=== PATIENT | male | born 1940 | race Caucasian/White ===

== ENCOUNTER 2023-02-02 18:41 | Inpatient (IN) | payer MEDICARE, SELFPAY ==
[2023-02-02] VITALS (33 sets, daily range): BP systolic 83–138; BP diastolic 43–79; PULSE 77–102; RESP 14–25; TEMP 36.7–36.8; O2SAT 77–98; BMI 24.4; BMI 24.3
--- NOTE | 2023-02-02 18:49 | ED.SOB1 ---
Documented by User: Keenan Myers MD 02/02/23 18:58 HPI - SOB/Dyspnea General Chief Complaint: Shortness of Breath/Dyspnea Stated Complaint: RESPIRATORY Time Seen by Provider: 02/02/23 18:48 Mode of arrival: ambulance History of Present Illness HPI Narrative: the patient was brought by ambulance from [facility] for complaining of shortness of breath. The patient was quite dyspneic on arrival and was not able to provide much infformation. The paramedics indicated that he had on nasal cannula at the facility and his pulse oxes were in the mid to high 70s. The transitioned him to 10 L and then he transitioned him to a nonrebreather mask but his pulse ox was only in the low 80s and so they put a CPAP on him in route here. They gave him 125 mg Solu-Medrol. They told us that he is a DNR CC, however paperwork clearly states he is DNR CCA. Past medical problems and diagnosis were all noted on his transfer sheet. He is here alone at this time but does say that he is . He does have unspecified dementia, also has a history of alcoholic polyneuropathy hypoxemia hypertension past history of Covid timing is unspecified. No indication of chronic obstructive pulmonary disease on his transfer sheet. We immediately were able to obtain a portable chest x-ray that was consistent with chronic obstructive pulmonary disease but did not show a large hemopneumothorax, heart failure shift and the trachea or abnormal cardiac silhouette. We continued to give him supportive care including dual amount and put him on our BiPAP equipment. He is awake and alert and following commands but limited facility to answer questions Related Data Home Medications Medication Instructions Recorded Confirmed Bactrim DS 500 mg PO BID 02/02/23 02/03/23 PolyethleneGlycol-Propylene Gycol 0.3 % topical 02/02/23 Ophthammic acetaminophen 500 mg capsule 500 mg PO Q6H PRN fever or pain 02/02/23 02/03/23 apixaban 5 mg tablet 5 mg PO BID 02/02/23 02/03/23 carbidopa ER 25 mg-levodopa 100 mg 1 tab PO TID 02/02/23 02/03/23 tablet,extended release cyanocobalamin (vitamin B-12) 1,000 mcg PO DAILY 02/02/23 02/03/23 1,000 mcg capsule ferrous sulfate 325 mg (65 mg 325 mg PO BID 02/02/23 02/03/23 iron) tablet (Feosol) gabapentin 400 mg capsule 400 mg PO TID 02/02/23 02/03/23 lidocaine external patch 4% 4 % topical DAILY 02/02/23 02/03/23 midodrine 5 mg tablet 5 mg PO TID 02/02/23 02/03/23 pantoprazole 40 mg tablet,delayed 40 mg PO BID 02/02/23 02/03/23 release sertraline 100 mg tablet (Zoloft) 100 mg PO DAILY 02/02/23 02/03/23 sertraline 50 mg tablet 50 mg PO DAILY 02/02/23 02/03/23 erythromycin 5 mg/gram (0.5 %) eye ophthalmic (eye) 02/03/23 ointment Allergies Allergy/AdvReac Type Severity Reaction Status Date / Time amantadine Allergy Severe Verified 02/02/23 18:49 ketorolac Allergy Severe Verified 02/02/23 18:49 tramadol Allergy Severe Verified 02/02/23 18:49 Exam Narrative Exam Narrative: appears at least stated age. Respiratory rate twenty-four with the squad BiPAP. Saturations eighty-three but were trying to get a better reading on that. He is afebrile. Blood pressure is noted. Constitutional appears stated age. Follows commands denies any pain or discomfort just says he short of breath. ENT there is no craniofacial trauma or injury. Neck is soft and supple. Respiratory scattered rhonchi and wheezing bilaterally. Cardio EKG is pending but his heart rate is ninety-three do not hear obvious murmur. Abdomen nontender. Extremities do not have any pedal edema or venous cords. Constitutional Vital Signs - 24 hr 02/02/23 18:43 02/02/23 18:51 02/02/23 18:45 Temperature 98.1 F Pulse Rate 94 H Pulse Rate [Monitor] 93 H Respiratory Rate 22 20 Blood Pressure Blood Pressure [Right Arm] 90/43 L Pulse Oximetry 83 L 96 82 L Oxygen Delivery Method Home BIPAP / CPAP BIPAP Oxygen Delivery Flow Rate Fraction of Inspired Oxygen 100 02/02/23 18:47 02/02/23 18:47 02/02/23 18:47 Temperature Pulse Rate 88 94 H 89 Pulse Rate [Monitor] Respiratory Rate 24 25 H 18 Blood Pressure 90/43 L 90/43 L Blood Pressure [Right Arm] Pulse Oximetry 96 81 L 97 Oxygen Delivery Method Oxygen Delivery Flow Rate Fraction of Inspired Oxygen 02/02/23 18:56 02/02/23 19:01 02/02/23 19:16 Temperature Pulse Rate 91 H 102 H 100 H Pulse Rate [Monitor] Respiratory Rate 20 19 Blood Pressure 109/51 L 83/54 L 86/48 L Blood Pressure [Right Arm] Pulse Oximetry 97 97 77 L Oxygen Delivery Method Oxygen Delivery Flow Rate Fraction of Inspired Oxygen 02/02/23 19:23 02/02/23 19:30 02/02/23 18:55 Temperature Pulse Rate 97 H 98 H 87 Pulse Rate [Monitor] Respiratory Rate Blood Pressure 95/51 L 119/58 L Blood Pressure [Right Arm] Pulse Oximetry 98 98 95 Oxygen Delivery Method Oxygen Delivery Flow Rate Fraction of Inspired Oxygen 100 02/02/23 18:55 02/02/23 19:30 02/02/23 20:05 Temperature Pulse Rate Pulse Rate [Monitor] 87 Respiratory Rate 19 19 Blood Pressure Blood Pressure [Right Arm] Pulse Oximetry 95 96 98 Oxygen Delivery Method BIPAP BIPAP BIPAP Oxygen Delivery Flow Rate Fraction of Inspired Oxygen 100 80 65 02/02/23 20:47 02/02/23 19:30 02/02/23 19:45 Temperature Pulse Rate 95 H 91 H Pulse Rate [Monitor] Respiratory Rate 20 19 21 Blood Pressure 119/58 L 119/69 Blood Pressure [Right Arm] Pulse Oximetry 94 L 97 98 Oxygen Delivery Method Nasal Cannula Oxygen Delivery Flow Rate 6 Fraction of Inspired Oxygen 02/02/23 20:00 02/02/23 20:15 02/02/23 20:34 Temperature Pulse Rate 91 H Pulse Rate [Monitor] Respiratory Rate 20 Blood Pressure 129/72 H 117/65 Blood Pressure [Right Arm] Pulse Oximetry 97 98 Oxygen Delivery Method Oxygen Delivery Flow Rate Fraction of Inspired Oxygen 02/02/23 20:40 02/02/23 20:44 02/02/23 20:45 Temperature Pulse Rate 94 H 94 H 91 H Pulse Rate [Monitor] Respiratory Rate 17 20 20 Blood Pressure 120/62 H Blood Pressure [Right Arm] Pulse Oximetry 94 L 94 L 93 L Oxygen Delivery Method Oxygen Delivery Flow Rate Fraction of Inspired Oxygen 02/02/23 20:45 02/02/23 21:00 02/02/23 21:00 Temperature Pulse Rate 95 H 93 H 92 H Pulse Rate [Monitor] Respiratory Rate 14 19 18 Blood Pressure 120/62 H 134/63 H 134/63 H Blood Pressure [Right Arm] Pulse Oximetry 93 L 93 L 92 L Oxygen Delivery Method Oxygen Delivery Flow Rate Fraction of Inspired Oxygen 02/02/23 21:15 02/02/23 21:30 02/02/23 21:30 Temperature Pulse Rate 91 H 91 H 90 Pulse Rate [Monitor] Respiratory Rate 16 18 18 Blood Pressure 115/74 121/52 H 121/52 H Blood Pressure [Right Arm] Pulse Oximetry 93 L 92 L 94 L Oxygen Delivery Method Oxygen Delivery Flow Rate Fraction of Inspired Oxygen 02/02/23 21:45 02/02/23 22:00 02/02/23 22:15 Temperature Pulse Rate 91 H 90 91 H Pulse Rate [Monitor] Respiratory Rate 20 21 23 Blood Pressure 123/66 H 138/68 H 118/58 L Blood Pressure [Right Arm] Pulse Oximetry 94 L 89 L Oxygen Delivery Method Oxygen Delivery Flow Rate Fraction of Inspired Oxygen 02/02/23 22:30 Temperature Pulse Rate 90 Pulse Rate [Monitor] Respiratory Rate 17 Blood Pressure 114/79 Blood Pressure [Right Arm] Pulse Oximetry Oxygen Delivery Method Oxygen Delivery Flow Rate Fraction of Inspired Oxygen Course Vital Signs Vital signs: Vital Signs Temperature 98.1 F 02/02/23 18:43 Pulse Rate 93 H 02/02/23 18:43 Respiratory Rate 22 02/02/23 18:43 Blood Pressure 90/43 L 02/02/23 18:43 Pulse Oximetry 83 L 02/02/23 18:43 Oxygen Delivery Method Home BIPAP / CPAP 02/02/23 18:43 Temperature 98.2 F 02/02/23 23:18 Pulse Rate 81 02/03/23 02:06 Respiratory Rate 18 02/02/23 23:18 Blood Pressure 133/71 H 02/02/23 23:18 Pulse Oximetry 92 L 02/03/23 02:06 Oxygen Delivery Method Nasal Cannula 02/02/23 23:18 Oxygen Delivery Flow Rate 4 02/02/23 23:18 Fraction of Inspired Oxygen 65 02/02/23 20:05 MDM - SOB/Dyspnea MDM Narrative Medical decision making narrative: arrived just before the changes chest. We will order labs and appropriate diagnostic testing, suppportive care evaluate blood gases chest x-ray and other diagnostic studies. Care will be assumed by Dr. Macias Lab Data Labs: Lab Results 02/02/23 02/02/23 02/02/23 Range/Units 18:47 18:48 19:13 WBC 5.1 (4.0-11.0) 10^3/uL RBC 3.16 L (4.70-6.10) 10^6/uL Hgb 8.6 L (14.0-18.0) g/dL Hct 28.1 L (42.0-54.0) % MCV 88.9 (80.0-94.0) fL MCH 27.2 (25.9-34.0) pg MCHC 30.6 (29.9-35.2) g/dL RDW 16.7 H (11.0-15.0) % Plt Count 290 (150-450) 10^3/uL MPV 10.6 (9.5-13.5) fL Neut % (Auto) 56.3 (43.0-75.0) % Lymph % (Auto) 32.9 (20.5-60.0) % Castro % (Auto) 10.0 (1.7-12.0) % Eos % (Auto) 0.2 L (0.9-7.0) % Baso % (Auto) 0.0 L (0.2-2.0) % Neut # (Auto) 2.9 (1.4-6.5) 10^3/uL Lymph # (Auto) 1.7 (1.2-3.8) 10^3/uL Castro # (Auto) 0.5 (0.3-0.8) 10^3/uL Eos # (Auto) 0.0 (0.0-0.7) 10^3/uL Baso # (Auto) 0.0 (0.0-0.1) 10^3/uL Abs Immat Gran (auto) 0.03 (0.00-0.03) 10^3/uL Imm/Tot Granulo (auto) 0.6 H (0.0-0.5) % PT 10.6 (9.0-11.6) sec INR 1.00 D-Dimer 1.80 H* (<=0.59) mg/L FEU Puncture Site R radial ABG pH 7.251 L* (7.350-7.450) ABG pCO2 38.4 (35.0-45.0) mmHg ABG pO2 175.0 H (80.0-100.0) mmHg ABG HCO3 16.9 L (22.0-26.0) mmol/L ABG O2 Saturation 99.9 % ABG Base Excess -10.3 L (-2.0-2.0) mmol/L Sushil Test Positive (POSITIVE) O2 Liters/Min FiO2 100 % BiPAP 14/7 Sodium 134 L (136-145) mmol/L Potassium 3.5 (3.5-5.1) mmol/L Chloride 100 (98-107) mmol/L Carbon Dioxide 21.8 (21.0-32.0) mmol/L Anion Gap 15.7 BUN 14.0 (7.0-18.0) mg/dL Creatinine 1.86 H (0.70-1.30) mg/dL Est GFR ( Amer) 42 L (>=60) Est GFR (Non-Af Amer) 35 L (>=60) BUN/Creatinine Ratio 7.5 Glucose 121 H (74-106) mg/dL Lactate 1.8 (0.4-2.0) mmol/L Calcium 8.9 (8.5-10.1) mg/dL Total Bilirubin 0.3 (0.2-1.0) mg/dL AST 17 (15-37) U/L ALT <6 L (16-63) U/L Alkaline Phosphatase 197 H (46-116) U/L Troponin I High Sens 7.6 (4.0-76.1) pg/mL NT-Pro-B Natriuret Pep 488.0 (<=1800.0) pg/mL Total Protein 8.2 (6.4-8.2) g/dL Albumin 3.2 L (3.4-5.0) g/dL Globulin 5.0 g/dL Albumin/Globulin Ratio 0.6 Urine Color (YELLOW) Urine Clarity (CLEAR) Urine pH (5.0-9.0) Ur Specific Clutier (1.005-1.025) Urine Protein (NEG/TRACE) mg/dL Urine Glucose (UA) (NEGATIVE) mg/dL Urine Ketones (NEGATIVE) mg/dL Urine Occult Blood (NEGATIVE) Urine Nitrite (NEGATIVE) Urine Bilirubin (NEGATIVE) Urine Urobilinogen (0.2-1.0) EU/dL Ur Leukocyte Esterase (NEGATIVE) 02/02/23 02/02/23 Range/Units 21:18 22:05 WBC (4.0-11.0) 10^3/uL RBC (4.70-6.10) 10^6/uL Hgb (14.0-18.0) g/dL Hct (42.0-54.0) % MCV (80.0-94.0) fL MCH (25.9-34.0) pg MCHC (29.9-35.2) g/dL RDW (11.0-15.0) % Plt Count (150-450) 10^3/uL MPV (9.5-13.5) fL Neut % (Auto) (43.0-75.0) % Lymph % (Auto) (20.5-60.0) % Castro % (Auto) (1.7-12.0) % Eos % (Auto) (0.9-7.0) % Baso % (Auto) (0.2-2.0) % Neut # (Auto) (1.4-6.5) 10^3/uL Lymph # (Auto) (1.2-3.8) 10^3/uL Castro # (Auto) (0.3-0.8) 10^3/uL Eos # (Auto) (0.0-0.7) 10^3/uL Baso # (Auto) (0.0-0.1) 10^3/uL Abs Immat Gran (auto) (0.00-0.03) 10^3/uL Imm/Tot Granulo (auto) (0.0-0.5) % PT (9.0-11.6) sec INR D-Dimer (<=0.59) mg/L FEU Puncture Site R radial ABG pH 7.272 L* (7.350-7.450) ABG pCO2 35.8 (35.0-45.0) mmHg ABG pO2 64.0 L (80.0-100.0) mmHg ABG HCO3 16.5 L (22.0-26.0) mmol/L ABG O2 Saturation 90.8 % ABG Base Excess -10.3 L (-2.0-2.0) mmol/L Sushil Test Positive (POSITIVE) O2 Liters/Min 6 FiO2 % BiPAP Sodium (136-145) mmol/L Potassium (3.5-5.1) mmol/L Chloride (98-107) mmol/L Carbon Dioxide (21.0-32.0) mmol/L Anion Gap BUN (7.0-18.0) mg/dL Creatinine (0.70-1.30) mg/dL Est GFR ( Amer) (>=60) Est GFR (Non-Af Amer) (>=60) BUN/Creatinine Ratio Glucose (74-106) mg/dL Lactate (0.4-2.0) mmol/L Calcium (8.5-10.1) mg/dL Total Bilirubin (0.2-1.0) mg/dL AST (15-37) U/L ALT (16-63) U/L Alkaline Phosphatase (46-116) U/L Troponin I High Sens (4.0-76.1) pg/mL NT-Pro-B Natriuret Pep (<=1800.0) pg/mL Total Protein (6.4-8.2) g/dL Albumin (3.4-5.0) g/dL Globulin g/dL Albumin/Globulin Ratio Urine Color Yellow (YELLOW) Urine Clarity Clear (CLEAR) Urine pH 6.0 (5.0-9.0) Ur Specific Clutier 1.010 (1.005-1.025) Urine Protein Negative (NEG/TRACE) mg/dL Urine Glucose (UA) Negative (NEGATIVE) mg/dL Urine Ketones Negative (NEGATIVE) mg/dL Urine Occult Blood Negative (NEGATIVE) Urine Nitrite Negative (NEGATIVE) Urine Bilirubin Negative (NEGATIVE) Urine Urobilinogen 0.2 (0.2-1.0) EU/dL Ur Leukocyte Esterase Negative (NEGATIVE) Discharge Plan Discharge Chief Complaint: Shortness of Breath/Dyspnea Clinical Impression: Hypoxemia, Metabolic acidosis Patient Disposition: Admitted As Inpatient Discharge Date/Time: 02/02/23 22:55 Documented by User: Bassam Macias MD 02/02/23 21:53 HPI - SOB/Dyspnea General Chief Complaint: Shortness of Breath/Dyspnea Stated Complaint: RESPIRATORY Time Seen by Provider: 02/02/23 18:48 Related Data Home Medications Medication Instructions Recorded Confirmed Bactrim DS 500 mg PO BID 02/02/23 02/03/23 PolyethleneGlycol-Propylene Gycol 0.3 % topical 02/02/23 Ophthammic acetaminophen 500 mg capsule 500 mg PO Q6H PRN fever or pain 02/02/23 02/03/23 apixaban 5 mg tablet 5 mg PO BID 02/02/23 02/03/23 carbidopa ER 25 mg-levodopa 100 mg 1 tab PO TID 02/02/23 02/03/23 tablet,extended release cyanocobalamin (vitamin B-12) 1,000 mcg PO DAILY 02/02/23 02/03/23 1,000 mcg capsule ferrous sulfate 325 mg (65 mg 325 mg PO BID 02/02/23 02/03/23 iron) tablet (Feosol) gabapentin 400 mg capsule 400 mg PO TID 02/02/23 02/03/23 lidocaine external patch 4% 4 % topical DAILY 02/02/23 02/03/23 midodrine 5 mg tablet 5 mg PO TID 02/02/23 02/03/23 pantoprazole 40 mg tablet,delayed 40 mg PO BID 02/02/23 02/03/23 release sertraline 100 mg tablet (Zoloft) 100 mg PO DAILY 02/02/23 02/03/23 sertraline 50 mg tablet 50 mg PO DAILY 02/02/23 02/03/23 erythromycin 5 mg/gram (0.5 %) eye ophthalmic (eye) 02/03/23 ointment Allergies Allergy/AdvReac Type Severity Reaction Status Date / Time amantadine Allergy Severe Verified 02/02/23 18:49 ketorolac Allergy Severe Verified 02/02/23 18:49 tramadol Allergy Severe Verified 02/02/23 18:49 Exam Constitutional Vital Signs - 24 hr 02/02/23 18:43 02/02/23 18:51 02/02/23 18:45 Temperature 98.1 F Pulse Rate 94 H Pulse Rate [Monitor] 93 H Respiratory Rate 22 20 Blood Pressure Blood Pressure [Right Arm] 90/43 L Pulse Oximetry 83 L 96 82 L Oxygen Delivery Method Home BIPAP / CPAP BIPAP Oxygen Delivery Flow Rate Fraction of Inspired Oxygen 100 02/02/23 18:47 02/02/23 18:47 02/02/23 18:47 Temperature Pulse Rate 88 94 H 89 Pulse Rate [Monitor] Respiratory Rate 24 25 H 18 Blood Pressure 90/43 L 90/43 L Blood Pressure [Right Arm] Pulse Oximetry 96 81 L 97 Oxygen Delivery Method Oxygen Delivery Flow Rate Fraction of Inspired Oxygen 02/02/23 18:56 02/02/23 19:01 02/02/23 19:16 Temperature Pulse Rate 91 H 102 H 100 H Pulse Rate [Monitor] Respiratory Rate 20 19 Blood Pressure 109/51 L 83/54 L 86/48 L Blood Pressure [Right Arm] Pulse Oximetry 97 97 77 L Oxygen Delivery Method Oxygen Delivery Flow Rate Fraction of Inspired Oxygen 02/02/23 19:23 02/02/23 19:30 02/02/23 18:55 Temperature Pulse Rate 97 H 98 H 87 Pulse Rate [Monitor] Respiratory Rate Blood Pressure 95/51 L 119/58 L Blood Pressure [Right Arm] Pulse Oximetry 98 98 95 Oxygen Delivery Method Oxygen Delivery Flow Rate Fraction of Inspired Oxygen 100 02/02/23 18:55 02/02/23 19:30 02/02/23 20:05 Temperature Pulse Rate Pulse Rate [Monitor] 87 Respiratory Rate 19 19 Blood Pressure Blood Pressure [Right Arm] Pulse Oximetry 95 96 98 Oxygen Delivery Method BIPAP BIPAP BIPAP Oxygen Delivery Flow Rate Fraction of Inspired Oxygen 100 80 65 02/02/23 20:47 02/02/23 19:30 02/02/23 19:45 Temperature Pulse Rate 95 H 91 H Pulse Rate [Monitor] Respiratory Rate 20 19 21 Blood Pressure 119/58 L 119/69 Blood Pressure [Right Arm] Pulse Oximetry 94 L 97 98 Oxygen Delivery Method Nasal Cannula Oxygen Delivery Flow Rate 6 Fraction of Inspired Oxygen 02/02/23 20:00 02/02/23 20:15 02/02/23 20:34 Temperature Pulse Rate 91 H Pulse Rate [Monitor] Respiratory Rate 20 Blood Pressure 129/72 H 117/65 Blood Pressure [Right Arm] Pulse Oximetry 97 98 Oxygen Delivery Method Oxygen Delivery Flow Rate Fraction of Inspired Oxygen 02/02/23 20:40 02/02/23 20:44 06/20/23 20:45 Temperature Pulse Rate 94 H 94 H 91 H Pulse Rate [Monitor] Respiratory Rate 17 20 20 Blood Pressure 120/62 H Blood Pressure [Right Arm] Pulse Oximetry 94 L 94 L 93 L Oxygen Delivery Method Oxygen Delivery Flow Rate Fraction of Inspired Oxygen 02/02/23 20:45 02/02/23 21:00 02/02/23 21:00 Temperature Pulse Rate 95 H 93 H 92 H Pulse Rate [Monitor] Respiratory Rate 14 19 18 Blood Pressure 120/62 H 134/63 H 134/63 H Blood Pressure [Right Arm] Pulse Oximetry 93 L 93 L 92 L Oxygen Delivery Method Oxygen Delivery Flow Rate Fraction of Inspired Oxygen 02/02/23 21:15 02/02/23 21:30 02/02/23 21:30 Temperature Pulse Rate 91 H 91 H 90 Pulse Rate [Monitor] Respiratory Rate 16 18 18 Blood Pressure 115/74 121/52 H 121/52 H Blood Pressure [Right Arm] Pulse Oximetry 93 L 92 L 94 L Oxygen Delivery Method Oxygen Delivery Flow Rate Fraction of Inspired Oxygen 02/02/23 21:45 02/02/23 22:00 02/02/23 22:15 Temperature Pulse Rate 91 H 90 91 H Pulse Rate [Monitor] Respiratory Rate 20 21 23 Blood Pressure 123/66 H 138/68 H 118/58 L Blood Pressure [Right Arm] Pulse Oximetry 94 L 89 L Oxygen Delivery Method Oxygen Delivery Flow Rate Fraction of Inspired Oxygen 02/02/23 22:30 Temperature Pulse Rate 90 Pulse Rate [Monitor] Respiratory Rate 17 Blood Pressure 114/79 Blood Pressure [Right Arm] Pulse Oximetry Oxygen Delivery Method Oxygen Delivery Flow Rate Fraction of Inspired Oxygen Course Vital Signs Vital signs: Vital Signs Temperature 98.1 F 02/02/23 18:43 Pulse Rate 93 H 02/02/23 18:43 Respiratory Rate 22 02/02/23 18:43 Blood Pressure 90/43 L 02/02/23 18:43 Pulse Oximetry 83 L 02/02/23 18:43 Oxygen Delivery Method Home BIPAP / CPAP 02/02/23 18:43 Temperature 98.2 F 02/02/23 23:18 Pulse Rate 81 02/03/23 02:06 Respiratory Rate 18 02/02/23 23:18 Blood Pressure 133/71 H 02/02/23 23:18 Pulse Oximetry 92 L 02/03/23 02:06 Oxygen Delivery Method Nasal Cannula 02/02/23 23:18 Oxygen Delivery Flow Rate 4 02/02/23 23:18 Fraction of Inspired Oxygen 65 02/02/23 20:05 MDM - SOB/Dyspnea Medical Records Medical records narrative: care transferred at change of shift. Patient arrived from skilled nursing hypoxic. Workup demonstrates metabolic acidosis and hypoxemia. He has chronic anemia and CTA with evidence of chronic pulmonary emboli. No acute emboli.We were able to change his bipap to 6L NC . ABGs with Ph 7.27, 35.8,P02 64 with sat 90.8%. His serum bicarb is 21.8. His vital signs remain normal. Discussed with hospitalist and will plan admission to ICU Lab Data Labs: Lab Results 02/02/23 02/02/23 02/02/23 Range/Units 18:47 18:48 19:13 WBC 5.1 (4.0-11.0) 10^3/uL RBC 3.16 L (4.70-6.10) 10^6/uL Hgb 8.6 L (14.0-18.0) g/dL Hct 28.1 L (42.0-54.0) % MCV 88.9 (80.0-94.0) fL MCH 27.2 (25.9-34.0) pg MCHC 30.6 (29.9-35.2) g/dL RDW 16.7 H (11.0-15.0) % Plt Count 290 (150-450) 10^3/uL MPV 10.6 (9.5-13.5) fL Neut % (Auto) 56.3 (43.0-75.0) % Lymph % (Auto) 32.9 (20.5-60.0) % Castro % (Auto) 10.0 (1.7-12.0) % Eos % (Auto) 0.2 L (0.9-7.0) % Baso % (Auto) 0.0 L (0.2-2.0) % Neut # (Auto) 2.9 (1.4-6.5) 10^3/uL Lymph # (Auto) 1.7 (1.2-3.8) 10^3/uL Castro # (Auto) 0.5 (0.3-0.8) 10^3/uL Eos # (Auto) 0.0 (0.0-0.7) 10^3/uL Baso # (Auto) 0.0 (0.0-0.1) 10^3/uL Abs Immat Gran (auto) 0.03 (0.00-0.03) 10^3/uL Imm/Tot Granulo (auto) 0.6 H (0.0-0.5) % PT 10.6 (9.0-11.6) sec INR 1.00 D-Dimer 1.80 H* (<=0.59) mg/L FEU Puncture Site R radial ABG pH 7.251 L* (7.350-7.450) ABG pCO2 38.4 (35.0-45.0) mmHg ABG pO2 175.0 H (80.0-100.0) mmHg ABG HCO3 16.9 L (22.0-26.0) mmol/L ABG O2 Saturation 99.9 % ABG Base Excess -10.3 L (-2.0-2.0) mmol/L Sushil Test Positive (POSITIVE) O2 Liters/Min FiO2 100 % BiPAP 14/7 Sodium 134 L (136-145) mmol/L Potassium 3.5 (3.5-5.1) mmol/L Chloride 100 (98-107) mmol/L Carbon Dioxide 21.8 (21.0-32.0) mmol/L Anion Gap 15.7 BUN 14.0 (7.0-18.0) mg/dL Creatinine 1.86 H (0.70-1.30) mg/dL Est GFR ( Amer) 42 L (>=60) Est GFR (Non-Af Amer) 35 L (>=60) BUN/Creatinine Ratio 7.5 Glucose 121 H (74-106) mg/dL Lactate 1.8 (0.4-2.0) mmol/L Calcium 8.9 (8.5-10.1) mg/dL Total Bilirubin 0.3 (0.2-1.0) mg/dL AST 17 (15-37) U/L ALT <6 L (16-63) U/L Alkaline Phosphatase 197 H (46-116) U/L Troponin I High Sens 7.6 (4.0-76.1) pg/mL NT-Pro-B Natriuret Pep 488.0 (<=1800.0) pg/mL Total Protein 8.2 (6.4-8.2) g/dL Albumin 3.2 L (3.4-5.0) g/dL Globulin 5.0 g/dL Albumin/Globulin Ratio 0.6 Urine Color (YELLOW) Urine Clarity (CLEAR) Urine pH (5.0-9.0) Ur Specific Clutier (1.005-1.025) Urine Protein (NEG/TRACE) mg/dL Urine Glucose (UA) (NEGATIVE) mg/dL Urine Ketones (NEGATIVE) mg/dL Urine Occult Blood (NEGATIVE) Urine Nitrite (NEGATIVE) Urine Bilirubin (NEGATIVE) Urine Urobilinogen (0.2-1.0) EU/dL Ur Leukocyte Esterase (NEGATIVE) 02/02/23 02/02/23 Range/Units 21:18 22:05 WBC (4.0-11.0) 10^3/uL RBC (4.70-6.10) 10^6/uL Hgb (14.0-18.0) g/dL Hct (42.0-54.0) % MCV (80.0-94.0) fL MCH (25.9-34.0) pg MCHC (29.9-35.2) g/dL RDW (11.0-15.0) % Plt Count (150-450) 10^3/uL MPV (9.5-13.5) fL Neut % (Auto) (43.0-75.0) % Lymph % (Auto) (20.5-60.0) % Castro % (Auto) (1.7-12.0) % Eos % (Auto) (0.9-7.0) % Baso % (Auto) (0.2-2.0) % Neut # (Auto) (1.4-6.5) 10^3/uL Lymph # (Auto) (1.2-3.8) 10^3/uL Castro # (Auto) (0.3-0.8) 10^3/uL Eos # (Auto) (0.0-0.7) 10^3/uL Baso # (Auto) (0.0-0.1) 10^3/uL Abs Immat Gran (auto) (0.00-0.03) 10^3/uL Imm/Tot Granulo (auto) (0.0-0.5) % PT (9.0-11.6) sec INR D-Dimer (<=0.59) mg/L FEU Puncture Site R radial ABG pH 7.272 L* (7.350-7.450) ABG pCO2 35.8 (35.0-45.0) mmHg ABG pO2 64.0 L (80.0-100.0) mmHg ABG HCO3 16.5 L (22.0-26.0) mmol/L ABG O2 Saturation 90.8 % ABG Base Excess -10.3 L (-2.0-2.0) mmol/L Sushil Test Positive (POSITIVE) O2 Liters/Min 6 FiO2 % BiPAP Sodium (136-145) mmol/L Potassium (3.5-5.1) mmol/L Chloride (98-107) mmol/L Carbon Dioxide (21.0-32.0) mmol/L Anion Gap BUN (7.0-18.0) mg/dL Creatinine (0.70-1.30) mg/dL Est GFR ( Amer) (>=60) Est GFR (Non-Af Amer) (>=60) BUN/Creatinine Ratio Glucose (74-106) mg/dL Lactate (0.4-2.0) mmol/L Calcium (8.5-10.1) mg/dL Total Bilirubin (0.2-1.0) mg/dL AST (15-37) U/L ALT (16-63) U/L Alkaline Phosphatase (46-116) U/L Troponin I High Sens (4.0-76.1) pg/mL NT-Pro-B Natriuret Pep (<=1800.0) pg/mL Total Protein (6.4-8.2) g/dL Albumin (3.4-5.0) g/dL Globulin g/dL Albumin/Globulin Ratio Urine Color Yellow (YELLOW) Urine Clarity Clear (CLEAR) Urine pH 6.0 (5.0-9.0) Ur Specific [place] 1.010 (1.005-1.025) Urine Protein Negative (NEG/TRACE) mg/dL Urine Glucose (UA) Negative (NEGATIVE) mg/dL Urine Ketones Negative (NEGATIVE) mg/dL Urine Occult Blood Negative (NEGATIVE) Urine Nitrite Negative (NEGATIVE) Urine Bilirubin Negative (NEGATIVE) Urine Urobilinogen 0.2 (0.2-1.0) EU/dL Ur Leukocyte Esterase Negative (NEGATIVE) Discharge Plan Discharge Chief Complaint: Shortness of Breath/Dyspnea Clinical Impression: Hypoxemia, Metabolic acidosis Patient Disposition: Admitted As Inpatient Discharge Date/Time: 02/02/23 22:55
--- NOTE | 2023-02-02 18:50 | XR_ITS ---
[address] [address] Patient Name: TRISTAN FRANKLIN MRN: [id number] date: 1940 Sex: M Assigned Patient Location: ED.MAIN Current Patient Location: ED.MAIN Accession/Order Number: [id number] Exam Date: 02/02/2023 18:45 Report Date: 02/02/2023 19:33 At the request of: ISSAC WEBB Procedure: XR chest 1V EXAM: XR chest 1V HISTORY: dyspnea COMPARISON: 12/19/2025 TECHNIQUE: Frontal view of the chest. FINDINGS: No focal consolidations or pleural effusions. Cardiomediastinal silhouette is unremarkable. Visualized osseous structures are unremarkable. IMPRESSION: No acute disease. Electronically authenticated by: ESTEFANI ROCHA Date: 02/02/2023 19:33
[2023-02-02] MEDS: IPRATROPIUM/ALBUTEROL SULFATE 3 ML AMPUL.NEB IH (18:55)
--- NOTE | 2023-02-02 18:55 | ECG_ITS ---
[facility] Test Date: 2023-02-02 Pat Name: Zhao Alexandra Department: Room: - Gender: Male Sack Sorter: : 1940 Requested By: MYRANDA CHO Order Number: [id number] Reading MD: MYRANDA CHO Measurements Intervals [place] Rate: 93 P: 90 KS: 212 QRS: 39 QRSD: 106 T: 66 QT: 390 QTc: 441 Interpretive Statements 1100 Sinus rhythm 2231 First degree AV block [address] depression 9150 abnormal ECG No previous ECG available for comparison Electronically Signed On 02-03-2023 7:21:47 EDT by MYRANDA CHO
[2023-02-02 19:01] LABS: Eosinophils Percent Auto 0.2 % (0.9-7.0); Hematocrit 28.1 % (42.0-54.0); Hemoglobin 8.6 g/dL (14.0-18.0); Immature Granulocytes Abs Auto 0.03 10^3/uL (0.00-0.03); Immature Granulocytes Pct Auto 0.6 % (0.0-0.5); Lymphocytes Absolute Auto 1.7 10^3/uL (1.2-3.8); Lymphocytes Percent Auto 32.9 % (20.5-60.0); Mean Corpuscular HGB Conc 30.6 g/dL (29.9-35.2); Mean Corpuscular Hemoglobin 27.2 pg (25.9-34.0); Mean Corpuscular Volume 88.9 fL (80.0-94.0); Mean Platelet Volume 10.6 fL (9.5-13.5); Monocytes Absolute Auto 0.5 10^3/uL (0.3-0.8); Neutrophils Absolute Auto 2.9 10^3/uL (1.4-6.5); Neutrophils Percent Auto 56.3 % (43.0-75.0); Platelet Count 290 10^3/uL (150-450); Red Blood Count 3.16 10^6/uL (4.70-6.10); Red Cell Distribution Width 16.7 % (11.0-15.0); White Blood Count 5.1 10^3/uL (4.0-11.0)
[2023-02-02 19:18] LABS: ABG PCO2 38.4 mmHg (35.0-45.0); HCO3 ABG 16.9 mmol/L (22.0-26.0)
[2023-02-02 19:19] LABS: Allen Test POSITIVE (POSITIVE); Base Excess ABG -10.3 mmol/L (-2.0-2.0); Fractionated Inspired Oxygen 100 %; O2 Mode BIPAP; Oxygen Saturation ABG 99.9 %; Puncture Site R RADIAL
[2023-02-02 19:20] LABS: BIPAP Pressure 14/7; pH ABG 7.251 (7.350-7.450)
[2023-02-02 19:27] LABS: Alanine Aminotransferase <6 U/L (16-63); Albumin Globulin Ratio 0.6; Albumin Level 3.2 g/dL (3.4-5.0); Alkaline Phosphatase 197 U/L (46-116); Anion Gap 15.7; Aspartate Amino Transferase 17 U/L (15-37); BUN Creatinine Ratio 7.5; Bilirubin Total 0.3 mg/dL (0.2-1.0); Calcium 8.9 mg/dL (8.5-10.1); Carbon Dioxide 21.8 mmol/L (21.0-32.0); Chloride 100 mmol/L (98-107); Estimated GFR (African America 42 (>=60); Estimated GFR (Non-African Ame 35 (>=60); Glucose 121 mg/dL (74-106); Potassium 3.5 mmol/L (3.5-5.1); Sodium 134 mmol/L (136-145); Total Protein 8.2 g/dL (6.4-8.2); Troponin I High Sensitivity 7.6 pg/mL (4.0-76.1)
[2023-02-02 19:37] LABS: Prothrombin Time 10.6 sec (9.0-11.6)
--- NOTE | 2023-02-02 19:41 | RESP.RT ---
fio2 decreased from 100% to 80% on bipap. Patient tolerating well
--- NOTE | 2023-02-02 19:54 | CT_ITS ---
The [address] [address] Patient Name: TRISTAN FRANKLIN MRN: [id number] date: 1940 Sex: M Assigned Patient Location: ER Current Patient Location: Accession/Order Number: [id number] Exam Date: 02/02/2023 20:25 Report Date: 02/02/2023 20:51 At the request of: JEANNETTE SANDY Procedure: CT angio chest EXAM: CT pulmonary angiogram of the chest using 100 mL of IV iodinated contrast. 3-D imaging was performed. Dose reduction technique used: Automated exposure control and/or adjustment of the mA and/or kV according to patient size and/or use of iterative reconstruction technique. REASON FOR EXAM: dyspnea and elevated d-dimer COMPARISON: CT scan dated 10/27/2012 FINDINGS: No acute pulmonary emboli. No aortic dissection. No pneumothorax. No acute airspace opacities. No pleural effusion. No acute fractures. No concerning pulmonary nodules. No definite lymphadenopathy in the chest. Changes of chronic pulmonary emboli with a with and calcification in the right lower lobe are pulmonary artery branch. Micronodules in the upper lungs bilaterally, more evident on the right are likely sequela of infection/inflammation. Small amount of scarring or linear atelectasis in the lower lungs bilaterally. Multiple old bilateral rib fractures. 5.9 x 4.4 cm posterior right hepatic heterogenous hypoenhancing lesion, this has decreased in size compared to 2013. Remainder unremarkable. IMPRESSION: 1. No acute pulmonary embolism or acute abnormalities in chest. 2. Changes of chronic pulmonary emboli. 3. Right hepatic hypoenhancing lesion has decreased in size since 2012. Electronically authenticated by: CHEPE CUI Date: 02/02/2023 20:51
[2023-02-02] MEDS: 0.9 % SODIUM CHLORIDE 1,000 ML 999 ML IV (20:21)
--- NOTE | 2023-02-02 20:25 | RESP.RT ---
fio2 decreased down to 65%, patient tolerating well
--- NOTE | 2023-02-02 20:47 | RESP.RT ---
patient taken off of bipap and placed on 6L NC. Tolerating well
[2023-02-02 21:24] LABS: ABG PCO2 35.8 mmHg (35.0-45.0); Allen Test POSITIVE (POSITIVE); Base Excess ABG -10.3 mmol/L (-2.0-2.0); HCO3 ABG 16.5 mmol/L (22.0-26.0); Oxygen Saturation ABG 90.8 %
[2023-02-02 21:25] LABS: Liters per Minute 6; O2 Mode NASAL CANNULA; Puncture Site R RADIAL; pH ABG 7.272 (7.350-7.450)
[2023-02-02 22:15] LABS: Lactate/Lactic Acid 1.8 mmol/L (0.4-2.0)
[2023-02-02 22:23] LABS: Bilirubin Urine NEGATIVE (NEGATIVE); Blood Urine NEGATIVE (NEGATIVE); Clarity Urine CLEAR (CLEAR); Color Urine YELLOW (YELLOW); Glucose Urine UA NEGATIVE (NEGATIVE); Ketones Urine NEGATIVE (NEGATIVE); Leukocyte Esterase Urine NEGATIVE (NEGATIVE); Nitrite Urine NEGATIVE (NEGATIVE); Protein Urine NEGATIVE (NEG/TRACE); Urine Microscopic Indicated NO; Urobilinogen Urine 0.2 EU/dL (0.2-1.0)
[2023-02-03] VITALS (32 sets, daily range): BP systolic 95–154; BP diastolic 47–68; PULSE 64–104; RESP 16–28; TEMP 36.6–37.7; O2SAT 88–98; BMI 24.3
--- NOTE | 2023-02-03 02:11 | W.PM.TELEPN ---
Progress Note: Subjective Subjective Interval history: SOB HPI: this ia 82 yo male, resident of [facility], who was brought by ambulance from [facility] for complaining of shortness of breath. 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 In ED found to be in metabolic acidosis. The patient was quite dyspneic on arrival and was not able to provide much infformation. The paramedics indicated that he had on nasal cannula at the facility and his pulse oxes were in the mid to high 70s. The transitioned him to 10 L and then he transitioned him to a nonrebreather mask but his pulse ox was only in the low 80s and so they put a CPAP on him in route here. They gave him 125 mg Solu-Medrol. They told us that he is a DNR CC, however paperwork clearly states he is DNR CCA. Past medical problems and diagnosis were all noted on his transfer sheet. He is here alone at this time but does say that he is . He does have unspecified dementia, also has a history of alcoholic polyneuropathy hypoxemia hypertension past history of Covid timing is unspecified. No indication of chronic obstructive pulmonary disease on his transfer sheet. We immediately were able to obtain a portable chest x-ray that was consistent with chronic obstructive pulmonary disease but did not show a large hemopneumothorax, heart failure shift and the trachea or abnormal cardiac silhouette. We continued to give him supportive care including dual amount and put him on our BiPAP equipment. He is awake and alert and following commands but limited facility to answer questions Exam Narrative Exam Narrative: NAD, cooperative, PERRLA, EOMI Neck supple, no JVD, no LNs Lungs - coarse BSs, wheezing Heart - S1, S@ ABd - S/NT/ND/+BSs EXt - no C/C/E Neuro - cogwheeling Constitutional Vital Signs - 24 hr 02/02/23 18:43 02/02/23 18:51 02/02/23 18:45 Temperature 98.1 F Pulse Rate 94 H Pulse Rate [Monitor] 93 H Respiratory Rate 22 20 Blood Pressure Blood Pressure [Right Arm] 90/43 L Pulse Oximetry 83 L 96 82 L Oxygen Delivery Method Home BIPAP / CPAP BIPAP Oxygen Delivery Flow Rate Fraction of Inspired Oxygen 100 02/02/23 18:47 02/02/23 18:47 02/02/23 18:47 Temperature Pulse Rate 88 94 H 89 Pulse Rate [Monitor] Respiratory Rate 24 25 H 18 Blood Pressure 90/43 L 90/43 L Blood Pressure [Right Arm] Pulse Oximetry 96 81 L 97 Oxygen Delivery Method Oxygen Delivery Flow Rate Fraction of Inspired Oxygen 02/02/23 18:56 02/02/23 19:01 02/02/23 19:16 Temperature Pulse Rate 91 H 102 H 100 H Pulse Rate [Monitor] Respiratory Rate 20 19 Blood Pressure 109/51 L 83/54 L 86/48 L Blood Pressure [Right Arm] Pulse Oximetry 97 97 77 L Oxygen Delivery Method Oxygen Delivery Flow Rate Fraction of Inspired Oxygen 02/02/23 19:23 02/02/23 19:30 02/02/23 18:55 Temperature Pulse Rate 97 H 98 H 87 Pulse Rate [Monitor] Respiratory Rate Blood Pressure 95/51 L 119/58 L Blood Pressure [Right Arm] Pulse Oximetry 98 98 95 Oxygen Delivery Method Oxygen Delivery Flow Rate Fraction of Inspired Oxygen 100 02/02/23 18:55 02/02/23 19:30 02/02/23 20:05 Temperature Pulse Rate Pulse Rate [Monitor] 87 Respiratory Rate 19 19 Blood Pressure Blood Pressure [Right Arm] Pulse Oximetry 95 96 98 Oxygen Delivery Method BIPAP BIPAP BIPAP Oxygen Delivery Flow Rate Fraction of Inspired Oxygen 100 80 65 02/02/23 20:47 02/02/23 19:30 02/02/23 19:45 Temperature Pulse Rate 95 H 91 H Pulse Rate [Monitor] Respiratory Rate 20 19 21 Blood Pressure 119/58 L 119/69 Blood Pressure [Right Arm] Pulse Oximetry 94 L 97 98 Oxygen Delivery Method Nasal Cannula Oxygen Delivery Flow Rate 6 Fraction of Inspired Oxygen 02/02/23 20:00 02/02/23 20:15 02/02/23 20:34 Temperature Pulse Rate 91 H Pulse Rate [Monitor] Respiratory Rate 20 Blood Pressure 129/72 H 117/65 Blood Pressure [Right Arm] Pulse Oximetry 97 98 Oxygen Delivery Method Oxygen Delivery Flow Rate Fraction of Inspired Oxygen 02/02/23 20:40 02/02/23 20:44 02/02/23 20:45 Temperature Pulse Rate 94 H 94 H 91 H Pulse Rate [Monitor] Respiratory Rate 17 20 20 Blood Pressure 120/62 H Blood Pressure [Right Arm] Pulse Oximetry 94 L 94 L 93 L Oxygen Delivery Method Oxygen Delivery Flow Rate Fraction of Inspired Oxygen 02/02/23 20:45 02/02/23 21:00 02/02/23 21:00 Temperature Pulse Rate 95 H 93 H 92 H Pulse Rate [Monitor] Respiratory Rate 14 19 18 Blood Pressure 120/62 H 134/63 H 134/63 H Blood Pressure [Right Arm] Pulse Oximetry 93 L 93 L 92 L Oxygen Delivery Method Oxygen Delivery Flow Rate Fraction of Inspired Oxygen 02/02/23 21:15 02/02/23 21:30 02/02/23 21:30 Temperature Pulse Rate 91 H 91 H 90 Pulse Rate [Monitor] Respiratory Rate 16 18 18 Blood Pressure 115/74 121/52 H 121/52 H Blood Pressure [Right Arm] Pulse Oximetry 93 L 92 L 94 L Oxygen Delivery Method Oxygen Delivery Flow Rate Fraction of Inspired Oxygen 02/02/23 21:45 02/02/23 22:00 02/02/23 22:15 Temperature Pulse Rate 91 H 90 91 H Pulse Rate [Monitor] Respiratory Rate 20 21 23 Blood Pressure 123/66 H 138/68 H 118/58 L Blood Pressure [Right Arm] Pulse Oximetry 94 L 89 L Oxygen Delivery Method Oxygen Delivery Flow Rate Fraction of Inspired Oxygen 02/02/23 22:30 02/02/23 23:18 02/02/23 23:18 Temperature 98.2 F Pulse Rate 90 92 H Pulse Rate [Monitor] 89 Respiratory Rate 17 16 14 Blood Pressure 114/79 Blood Pressure [Right Arm] 133/71 H Pulse Oximetry 91 L 91 L Oxygen Delivery Method Nasal Cannula Nasal Cannula Oxygen Delivery Flow Rate 4 Fraction of Inspired Oxygen 02/02/23 23:18 02/02/23 23:57 02/03/23 01:19 Temperature Pulse Rate 89 85 Pulse Rate [Monitor] Respiratory Rate 18 Blood Pressure Blood Pressure [Right Arm] Pulse Oximetry 93 L 90 L Oxygen Delivery Method Oxygen Delivery Flow Rate Fraction of Inspired Oxygen 02/03/23 02:06 Temperature Pulse Rate 81 Pulse Rate [Monitor] Respiratory Rate Blood Pressure Blood Pressure [Right Arm] Pulse Oximetry 92 L Oxygen Delivery Method Oxygen Delivery Flow Rate Fraction of Inspired Oxygen Progress Note: Objective Labs Labs: Short CBC 02/02/23 Range/Units 18:48 WBC 5.1 (4.0-11.0) 10^3/uL Hgb 8.6 L (14.0-18.0) g/dL Hct 28.1 L (42.0-54.0) % Plt Count 290 (150-450) 10^3/uL BMP 02/02/23 18:48 Sodium 134 L Potassium 3.5 Chloride 100 Carbon Dioxide 21.8 BUN 14.0 Creatinine 1.86 H Glucose 121 H Calcium 8.9 Liver Function 02/02/23 Range/Units 18:48 Total Bilirubin 0.3 (0.2-1.0) mg/dL AST 17 (15-37) U/L ALT <6 L (16-63) U/L Alkaline Phosphatase 197 H (46-116) U/L Albumin 3.2 L (3.4-5.0) g/dL Urine 02/02/23 Range/Units 22:05 Urine Color Yellow (YELLOW) Urine Clarity Clear (CLEAR) Urine pH 6.0 (5.0-9.0) Ur Specific [place] 1.010 (1.005-1.025) Urine Protein Negative (NEG/TRACE) mg/dL Urine Glucose (UA) Negative (NEGATIVE) mg/dL Progress Note: A&P Assessment and Plan (1) Aspiration into airway: Assessment and Plan: NPO ST eval ordered aspiration precautions (2) Parkinson disease: Assessment and Plan: continue with home dose of Levodopa/Carbidopa fall precuations (3) Anemia in chronic illness: Assessment and Plan: no blood lowss at present (4) Hypoxemia: (5) Metabolic acidosis: Assessment and Plan: resolved Telemedicine Attestation Telemedicine Attestation I conducted this encounter from [[place]] via secure live, [id number] video conference with the patient, CHARGE TEST-CHARGES located at [facility] with [hypoxia]. Prior to the interview, the risks and benefits of telemedicine were discussed with the patient and verbal consent was obtained.
[2023-02-03] MEDS: 0.9 % SODIUM CHLORIDE 1,000 ML 75 ML IV ×2 (04:07→20:43)
[2023-02-03 05:12] LABS: Alanine Aminotransferase <6 U/L (16-63); Albumin Globulin Ratio 0.7; Albumin Level 2.7 g/dL (3.4-5.0); Alkaline Phosphatase 161 U/L (46-116); Anion Gap 14.8; Aspartate Amino Transferase 13 U/L (15-37); BUN Creatinine Ratio 8.7; Bilirubin Total 0.2 mg/dL (0.2-1.0); Calcium 8.4 mg/dL (8.5-10.1); Carbon Dioxide 20.1 mmol/L (21.0-32.0); Chloride 102 mmol/L (98-107); Estimated GFR (African America 43 (>=60); Estimated GFR (Non-African Ame 35 (>=60); Globulin 4.1 g/dL; Glucose 182 mg/dL (74-106); Potassium 3.9 mmol/L (3.5-5.1); Sodium 133 mmol/L (136-145); Total Protein 6.8 g/dL (6.4-8.2)
[2023-02-03] MEDS: IPRATROPIUM/ALBUTEROL SULFATE 3 ML AMPUL.NEB IH ×4 (05:52→20:02)
--- NOTE | 2023-02-03 09:00 | XR_ITS ---
The [address] [address] Patient Name: TRISTAN FRANKLIN MRN: [id number] date: 1940 Sex: M Assigned Patient Location: ICU Current Patient Location: ICU Accession/Order Number: [id number] Exam Date: 02/03/2023 09:20 Report Date: 02/03/2023 09:48 At the request of: CHESTER GUTIERREZ Procedure: XR chest 1V EXAMINATION: XR chest 1V HISTORY: shortness of breath COMPARISON: XR chest 02/02/2023 FINDINGS: LUNGS: Underexpanded lungs with mild opacities within lung bases. VASCULATURE: No increased pulmonary vasculature. PLEURA: No pneumothorax, effusion, or pleural thickening. CARDIAC: No cardiomegaly or cardiac silhouette abnormality. MEDIASTINUM: No visible mass or adenopathy. BONES: No fracture or visible bone lesion. OTHER: Air beneath left hemidiaphragm appears to be contained within the loop of bowel. IMPRESSION: 1. Underexpanded lungs with mild bibasilar infiltrates versus atelectasis; new since prior study. Electronically authenticated by: JOSHUA VO Date: 02/03/2023 09:48
[2023-02-03 09:16] LABS: Hemoglobin 7.2 g/dL (14.0-18.0); Mean Corpuscular HGB Conc 31.3 g/dL (29.9-35.2); Mean Corpuscular Hemoglobin 27.7 pg (25.9-34.0); Mean Corpuscular Volume 88.5 fL (80.0-94.0); Mean Platelet Volume 11.4 fL (9.5-13.5); Platelet Count 255 10^3/uL (150-450); White Blood Count 8.8 10^3/uL (4.0-11.0)
--- NOTE | 2023-02-03 09:26 | SWNOTE1 ---
SW checked with [facility] and pt is there skilled. SW to send updates.
--- NOTE | 2023-02-03 09:33 | CM.NOTE ---
Pt. is from the [facility] as a skilled patient. Pt. is in agreement to return there when ready for discharge. Pt. denies any other questions or needs in relation to discharge at this time. Rounding with Dr. Morris and TAMIE Mcgraw. Dr. Morris will order PT and OT eval for the patient. Continue to follow for any discharge related needs.
[2023-02-03 09:50] LABS: Lymphocytes Absolute Manual 0.44 10^3/uL (1.20-3.80); Monocytes Absolute Manual 0.17 10^3/uL (0.30-0.80); Segmented Neut Absolute Manual 8.18 10^3/uL (1.4-6.5)
[2023-02-03 09:52] LABS: Anisocytosis 2+
[2023-02-03 09:53] LABS: Ovalocytes 1+
[2023-02-03] MEDS: LIDOCAINE 5% PATCH 1 PATCH TOPICAL (10:07)
--- NOTE | 2023-02-03 10:13 | SWNOTE1 ---
CARTER met with pt's to discuss dc needs, pt as sleeping during assessment. Pt is at [facility] skilled, he fell and fractured his spine at end of December. Pt's is happy with his care at [facility] and the plan is for him to return once he is medically stable. Unsure what pt uses to ambulate at this time. CARTER sent updates to [facility], no precert to return.
--- NOTE | 2023-02-03 10:15 | SWNOTE1 ---
SW reviewed IMM form with pt's . She voiced understanding, no questions. Pt's signed form, original given to and copy placed on chart.
[2023-02-03] MEDS: BUDESONIDE 0.5 MG/2 ML AMPULE NEB IH ×2 (11:07→20:02)
--- NOTE | 2023-02-03 11:21 | RESP.RT ---
Patient had been on 3L but SpO2 dropped to 86% so titrated to 4L
[2023-02-03] MEDS: MIDODRINE HCL 5 MG TABLET PO ×2 (11:55→17:05)
--- NOTE | 2023-02-03 12:15 | PM.HP ---
H&P: HPI History of Present Illness Chief complaint: RESPIRATORY Narrative: patient is a 82-year-old male who presented from [facility] with a hypoxic event that started after choking on some food. There was no Heimlich maneuver performed, and patient seemed to improve in the EMS and while in the Emergency Room. Patient was placed on BiPAP while in the Emergency Room and saturations improved. Patient has known chronic obstructive pulmonary disease, Parkinson's, chronic pulmonary emboli, hypertension, chronic iron deficiency anemia. Patient suffered a thoracic compression fracture last month and has been in a thoracic brace and has been doing rehab at [facility]. His is present at the time of admission exam. She also notes that it's been difficult for them to keep his blood pressure up and the addition of midodrine has been added the assisted. Patient is a DNR CCA and the order was placed on the chart today. At the time of admission exam the patient is saturating well on 3 L of nasal cannula. He appears comfortable and in no acute distress. He denies any current issues or complaints such as fever or chest pain or shortness of breath. Review of Systems ROS Narrative ROS: a complete review of systems were reviewed with patient and are positive as below or listed in History of Chief Complaint. General: no fever, chills, night sweats Head: no headache, trauma, visual changes, nausea or vomiting Skin: no reported rashes, itching or sores Eyes: no blurriness of vision Ears: no reported hearing loss, vertigo, earache, or tinnitus Throat: no sore throat, hoarseness, swelling of neck, or tongue pain Heart: no chest pain Lungs: shortness of breath no cough GI: no diarrhea or vomiting/nausea Urinary: no urinary urgency, frequency or pain Neuro: no numbness or tingling HEM: no bleeding issues or bruising ENDO: no thyroid problems Psych: no anxiety or depression Meds Home Medications and Allergies Home Medications Medication Instructions Recorded Confirmed Type Bactrim DS 500 mg PO BID 02/02/23 02/03/23 History PolyethleneGlycol-Propylene Gycol 0.3 % topical 02/02/23 History Ophthammic acetaminophen 500 mg capsule 500 mg PO Q6H PRN fever or pain 02/02/23 02/03/23 History apixaban 5 mg tablet 5 mg PO BID 02/02/23 02/03/23 History carbidopa ER 25 mg-levodopa 100 mg 1 tab PO TID 02/02/23 02/03/23 History tablet,extended release cyanocobalamin (vitamin B-12) 1,000 mcg PO DAILY 02/02/23 02/03/23 History 1,000 mcg capsule ferrous sulfate 325 mg (65 mg 325 mg PO BID 02/02/23 02/03/23 History iron) tablet (Feosol) gabapentin 400 mg capsule 400 mg PO TID 02/02/23 02/03/23 History lidocaine external patch 4% 4 % topical DAILY 02/02/23 02/03/23 History midodrine 5 mg tablet 5 mg PO TID 02/02/23 02/03/23 History pantoprazole 40 mg tablet,delayed 40 mg PO BID 02/02/23 02/03/23 History release sertraline 100 mg tablet (Zoloft) 100 mg PO DAILY 02/02/23 02/03/23 History sertraline 50 mg tablet 50 mg PO DAILY 02/02/23 02/03/23 History erythromycin 5 mg/gram (0.5 %) eye ophthalmic (eye) 02/03/23 History ointment Allergies Allergy/AdvReac Type Severity Reaction Status Date / Time amantadine Allergy Severe Verified 02/02/23 18:49 ketorolac Allergy Severe Verified 02/02/23 18:49 tramadol Allergy Severe Verified 02/02/23 18:49 Exam Narrative Exam Narrative: General: Patient is alert, and oriented to person, place and time with normal affect, proper hygiene Skin: no visible rashes, or ulcers Head: atraumatic, acephalic Eyes: PERRLA, no nystagmus present, conjunctiva clear, no scleral icterus Ears: normal Tympanic Membrane, diminished gross auditory acuity Nose: symmetric, no discharge, no maxillary or frontal sinus tenderness Neck: no masses palpated, normal thyroid, no JVD or audible carotid bruits Heart: Normal rate and rhythm, no murmurs/rubs/gallops Lungs: no audible wheezes, crackles and normal breath sounds all lung cabezas Abdomen: Normal audible bowel sounds, no distension, No palpable masses, no organomegaly, no rebound/guarding/ or rigidity Musculoskeletal: no swelling bilateral lower extremities Lymph: no supraclavicular, axillary, or anterior/posterior cervical adenopathy Neuro: CN II-X grossly intact Constitutional Vital Signs - 24 hr 02/02/23 18:43 02/02/23 18:51 02/02/23 18:45 Temperature 98.1 F Pulse Rate 94 H Pulse Rate [Monitor] 93 H Respiratory Rate 22 20 Blood Pressure Blood Pressure [Right Arm] 90/43 L Pulse Oximetry 83 L 96 82 L Oxygen Delivery Method Home BIPAP / CPAP BIPAP Oxygen Delivery Flow Rate Fraction of Inspired Oxygen 100 02/02/23 18:47 02/02/23 18:47 02/02/23 18:47 Temperature Pulse Rate 88 94 H 89 Pulse Rate [Monitor] Respiratory Rate 24 25 H 18 Blood Pressure 90/43 L 90/43 L Blood Pressure [Right Arm] Pulse Oximetry 96 81 L 97 Oxygen Delivery Method Oxygen Delivery Flow Rate Fraction of Inspired Oxygen 02/02/23 18:56 02/02/23 19:01 02/02/23 19:16 Temperature Pulse Rate 91 H 102 H 100 H Pulse Rate [Monitor] Respiratory Rate 20 19 Blood Pressure 109/51 L 83/54 L 86/48 L Blood Pressure [Right Arm] Pulse Oximetry 97 97 77 L Oxygen Delivery Method Oxygen Delivery Flow Rate Fraction of Inspired Oxygen 02/02/23 19:23 02/02/23 19:30 02/02/23 18:55 Temperature Pulse Rate 97 H 98 H 87 Pulse Rate [Monitor] Respiratory Rate Blood Pressure 95/51 L 119/58 L Blood Pressure [Right Arm] Pulse Oximetry 98 98 95 Oxygen Delivery Method Oxygen Delivery Flow Rate Fraction of Inspired Oxygen 100 02/02/23 18:55 02/02/23 19:30 02/02/23 20:05 Temperature Pulse Rate Pulse Rate [Monitor] 87 Respiratory Rate 19 19 Blood Pressure Blood Pressure [Right Arm] Pulse Oximetry 95 96 98 Oxygen Delivery Method BIPAP BIPAP BIPAP Oxygen Delivery Flow Rate Fraction of Inspired Oxygen 100 80 65 02/02/23 20:47 02/02/23 19:30 02/02/23 19:45 Temperature Pulse Rate 95 H 91 H Pulse Rate [Monitor] Respiratory Rate 20 19 21 Blood Pressure 119/58 L 119/69 Blood Pressure [Right Arm] Pulse Oximetry 94 L 97 98 Oxygen Delivery Method Nasal Cannula Oxygen Delivery Flow Rate 6 Fraction of Inspired Oxygen 02/02/23 20:00 02/02/23 20:15 02/02/23 20:34 Temperature Pulse Rate 91 H Pulse Rate [Monitor] Respiratory Rate 20 Blood Pressure 129/72 H 117/65 Blood Pressure [Right Arm] Pulse Oximetry 97 98 Oxygen Delivery Method Oxygen Delivery Flow Rate Fraction of Inspired Oxygen 02/02/23 20:40 02/02/23 20:44 02/02/23 20:45 Temperature Pulse Rate 94 H 94 H 91 H Pulse Rate [Monitor] Respiratory Rate 17 20 20 Blood Pressure 120/62 H Blood Pressure [Right Arm] Pulse Oximetry 94 L 94 L 93 L Oxygen Delivery Method Oxygen Delivery Flow Rate Fraction of Inspired Oxygen 02/02/23 20:45 02/02/23 21:00 02/02/23 21:00 Temperature Pulse Rate 95 H 93 H 92 H Pulse Rate [Monitor] Respiratory Rate 14 19 18 Blood Pressure 120/62 H 134/63 H 134/63 H Blood Pressure [Right Arm] Pulse Oximetry 93 L 93 L 92 L Oxygen Delivery Method Oxygen Delivery Flow Rate Fraction of Inspired Oxygen 02/02/23 21:15 02/02/23 21:30 02/02/23 21:30 Temperature Pulse Rate 91 H 91 H 90 Pulse Rate [Monitor] Respiratory Rate 16 18 18 Blood Pressure 115/74 121/52 H 121/52 H Blood Pressure [Right Arm] Pulse Oximetry 93 L 92 L 94 L Oxygen Delivery Method Oxygen Delivery Flow Rate Fraction of Inspired Oxygen 02/02/23 21:45 02/02/23 22:00 02/02/23 22:15 Temperature Pulse Rate 91 H 90 91 H Pulse Rate [Monitor] Respiratory Rate 20 21 23 Blood Pressure 123/66 H 138/68 H 118/58 L Blood Pressure [Right Arm] Pulse Oximetry 94 L 89 L Oxygen Delivery Method Oxygen Delivery Flow Rate Fraction of Inspired Oxygen 02/02/23 22:30 02/02/23 23:18 02/02/23 23:18 Temperature 98.2 F Pulse Rate 90 92 H Pulse Rate [Monitor] 89 Respiratory Rate 17 16 14 Blood Pressure 114/79 Blood Pressure [Right Arm] 133/71 H Pulse Oximetry 91 L 91 L Oxygen Delivery Method Nasal Cannula Nasal Cannula Oxygen Delivery Flow Rate 4 Fraction of Inspired Oxygen 02/02/23 23:18 02/02/23 23:57 02/03/23 01:19 Temperature Pulse Rate 89 85 Pulse Rate [Monitor] Respiratory Rate 18 Blood Pressure Blood Pressure [Right Arm] Pulse Oximetry 93 L 90 L Oxygen Delivery Method Oxygen Delivery Flow Rate Fraction of Inspired Oxygen 02/03/23 02:06 02/03/23 03:03 02/03/23 03:17 Temperature Pulse Rate 81 75 74 Pulse Rate [Monitor] Respiratory Rate 18 Blood Pressure Blood Pressure [Right Arm] Pulse Oximetry 92 L 95 97 Oxygen Delivery Method Nasal Cannula Oxygen Delivery Flow Rate 4 Fraction of Inspired Oxygen 02/03/23 04:26 02/03/23 04:26 02/03/23 04:26 Temperature 97.8 F Pulse Rate 65 66 Pulse Rate [Monitor] 64 Respiratory Rate 18 18 Blood Pressure Blood Pressure [Right Arm] 110/55 L Pulse Oximetry 95 95 Oxygen Delivery Method Nasal Cannula Oxygen Delivery Flow Rate 4 Fraction of Inspired Oxygen 02/03/23 05:28 02/03/23 06:01 02/03/23 06:01 Temperature Pulse Rate 65 92 H 91 H Pulse Rate [Monitor] Respiratory Rate 18 19 Blood Pressure Blood Pressure [Right Arm] 99/47 L Pulse Oximetry 96 95 95 Oxygen Delivery Method Nasal Cannula Nasal Cannula Oxygen Delivery Flow Rate 4 4 Fraction of Inspired Oxygen 02/03/23 07:38 02/02/23 22:30 02/02/23 22:45 Temperature Pulse Rate 81 93 H 89 Pulse Rate [Monitor] Respiratory Rate 16 19 Blood Pressure 114/79 116/65 Blood Pressure [Right Arm] Pulse Oximetry Oxygen Delivery Method Oxygen Delivery Flow Rate Fraction of Inspired Oxygen 02/02/23 22:51 02/02/23 23:00 02/02/23 23:04 Temperature Pulse Rate 94 H 94 H Pulse Rate [Monitor] Respiratory Rate 18 19 Blood Pressure Blood Pressure [Right Arm] Pulse Oximetry 95 92 L Oxygen Delivery Method Oxygen Delivery Flow Rate Fraction of Inspired Oxygen 02/02/23 23:05 02/03/23 04:03 02/03/23 05:50 Temperature Pulse Rate 77 92 H 88 Pulse Rate [Monitor] Respiratory Rate 14 17 21 Blood Pressure 133/71 H 110/55 L 99/47 L Blood Pressure [Right Arm] Pulse Oximetry 98 94 L 95 Oxygen Delivery Method Oxygen Delivery Flow Rate Fraction of Inspired Oxygen 02/03/23 07:14 02/03/23 09:01 02/03/23 10:00 Temperature 98 F Pulse Rate 80 74 72 Pulse Rate [Monitor] Respiratory Rate 16 Blood Pressure 95/47 L Blood Pressure [Right Arm] Pulse Oximetry 88 L 95 Oxygen Delivery Method Nasal Cannula Oxygen Delivery Flow Rate 4 Fraction of Inspired Oxygen 02/03/23 11:02 02/03/23 11:00 02/03/23 07:14 Temperature Pulse Rate 76 80 Pulse Rate [Monitor] Respiratory Rate 22 Blood Pressure 95/47 L Blood Pressure [Right Arm] Pulse Oximetry 96 97 Oxygen Delivery Method Nasal Cannula Oxygen Delivery Flow Rate 4 Fraction of Inspired Oxygen 02/03/23 11:20 Temperature 98.3 F Pulse Rate 104 H Pulse Rate [Monitor] Respiratory Rate 28 H Blood Pressure 119/68 Blood Pressure [Right Arm] Pulse Oximetry 94 L Oxygen Delivery Method Oxygen Delivery Flow Rate Fraction of Inspired Oxygen Results Labs Labs: Short CBC 02/02/23 02/03/23 Range/Units 18:48 03:54 WBC 5.1 8.8 (4.0-11.0) 10^3/uL Hgb 8.6 L 7.2 L (14.0-18.0) g/dL Hct 28.1 L 23.0 L* (42.0-54.0) % Plt Count 290 255 (150-450) 10^3/uL BMP 02/02/23 02/03/23 18:48 03:54 Sodium 134 L 133 L Potassium 3.5 3.9 Chloride 100 102 Carbon Dioxide 21.8 20.1 L BUN 14.0 16.0 Creatinine 1.86 H 1.84 H Glucose 121 H 182 H Calcium 8.9 8.4 L Liver Function 02/02/23 02/03/23 Range/Units 18:48 03:54 Total Bilirubin 0.3 0.2 (0.2-1.0) mg/dL AST 17 13 L (15-37) U/L ALT <6 L <6 L (16-63) U/L Alkaline Phosphatase 197 H 161 H (46-116) U/L Albumin 3.2 L 2.7 L (3.4-5.0) g/dL Urine 02/02/23 Range/Units 22:05 Urine Color Yellow (YELLOW) Urine Clarity Clear (CLEAR) Urine pH 6.0 (5.0-9.0) Ur Specific [place] 1.010 (1.005-1.025) Urine Protein Negative (NEG/TRACE) mg/dL Urine Glucose (UA) Negative (NEGATIVE) mg/dL ABG ABG results: 02/02/23 02/02/23 19:13 21:18 ABG pH 7.251 L* 7.272 L* ABG pCO2 38.4 35.8 ABG pO2 175.0 H 64.0 L ABG HCO3 16.9 L 16.5 L ABG O2 Saturation 99.9 90.8 ABG Base Excess -10.3 L -10.3 L Assessment and Plan Assessment and Plan (1) Aspiration pneumonia: Assessment and Plan: repeat x-ray today after having a CTA of the chest last night does show worsening pneumonia and given history of choking/aspiration will place on azathioprine and Rocephin. DuoNeb's, Pap therapy, monitor and titrate oxygen as needed with BiPAP on standby if needed (2) Acute and chronic respiratory failure ([id number]): Assessment and Plan: oxygen saturations did improve with BiPAP and is now saturating well on 2-3 L nasal cannula acute hypoxic event most likely secondary to aspiration could also be acute exacerbation of chronic obstructive pulmonary disease (3) Anemia in chronic illness: Assessment and Plan: initial hemoglobin was 8.6 and came down to 7.2 given shortness of breath most likely could be symptomatic. Will type and cross and transfuse patient one units of PRBCs patient is on oral iron therapy at home, patient and say that he has had a transfusion before understands the risks and benefits and did not have any prior issues. Recheck H and H and one hour after transfusion (4) Parkinson disease: Assessment and Plan: continue carbidopa levodopa (5) Hypotension: Assessment and Plan: continue midodrine (6) GERD (gastroesophageal reflux disease): Assessment and Plan: omeprazole 40 mg by mouth twice a day (7) Depression: Assessment and Plan: continue Zoloft (8) Thoracic compression fracture: Assessment and Plan: thoracic brace in place PT OT consult (9) Chronic pulmonary embolism: Assessment and Plan: as seen on CTA only chronic findings we will continue eliquis (10) COPD (chronic obstructive pulmonary disease): Assessment and Plan: will check viral cultures; on 2L NC oxygen at home Plan patient is a DNR CCA continue eliquis for deep vein thrombosis prophylaxis patient is admitted under inpatient status and is expected to stay more than 2 midnights
[2023-02-03] MEDS: CEFTRIAXONE 1,000 MG in 0.9 % SODIUM CHLORIDE 50 ML 100 MG IV (12:33)
[2023-02-03] MEDS: AZITHROMYCIN 250 MG in 0.9 % SODIUM CHLORIDE 250 ML IV (13:01)
[2023-02-03] MEDS: GABAPENTIN 400 MG CAPSULE PO ×2 (13:06→21:31)
[2023-02-03 13:12] LABS: Adenovirus NOT DETECTED (NOT DETECTE); Bordetella parapertussis NOT DETECTED (NOT DETECTE); Coronavirus 229E NOT DETECTED (NOT DETECTE); Coronavirus HKU1 NOT DETECTED (NOT DETECTE); Coronavirus NL63 NOT DETECTED (NOT DETECTE); Coronavirus OC43 NOT DETECTED (NOT DETECTE); Human Metapneumovirus NOT DETECTED (NOT DETECTE); Human Rhinovirus/Enterovirus NOT DETECTED (NOT DETECTE); Influenza A NOT DETECTED (NOT DETECTE); Influenza B NOT DETECTED (NOT DETECTE); Mycoplasma pneumoniae NOT DETECTED (NOT DETECTE); Parainfluenza Virus 1 NOT DETECTED (NOT DETECTE); Parainfluenza Virus 2 NOT DETECTED (NOT DETECTE); Parainfluenza Virus 3 NOT DETECTED (NOT DETECTE); Parainfluenza Virus 4 NOT DETECTED (NOT DETECTE); Respiratory Syncytial Virus NOT DETECTED (NOT DETECTE); SARS-CoV-2 NOT DETECTED (NOT DETECTE)
--- NOTE | 2023-02-03 13:38 | DIETREC ---
Add Ensure High Protein BID
--- NOTE | 2023-02-03 13:55 | PC.NURSE ---
pt and informed of transfer to room 216. report given to candi alvarado. belongings and medications sent with pt. taken to room 216 via wheelchair.
[2023-02-03] MEDS: 0.9 % SODIUM CHLORIDE 250 ML IV.SOLN 100 ML IV (14:40)
[2023-02-03 19:01] LABS: Eosinophils Percent Auto 0.1 % (0.9-7.0); Hemoglobin 7.7 g/dL (14.0-18.0); Immature Granulocytes Abs Auto 0.05 10^3/uL (0.00-0.03); Immature Granulocytes Pct Auto 0.6 % (0.0-0.5); Lymphocytes Absolute Auto 0.6 10^3/uL (1.2-3.8); Lymphocytes Percent Auto 7.7 % (20.5-60.0); Mean Corpuscular HGB Conc 32.5 g/dL (29.9-35.2); Mean Corpuscular Hemoglobin 27.9 pg (25.9-34.0); Mean Corpuscular Volume 85.9 fL (80.0-94.0); Mean Platelet Volume 10.1 fL (9.5-13.5); Monocytes Absolute Auto 0.9 10^3/uL (0.3-0.8); Neutrophils Absolute Auto 6.4 10^3/uL (1.4-6.5); Neutrophils Percent Auto 80.6 % (43.0-75.0); Platelet Count 224 10^3/uL (150-450); Red Blood Count 2.76 10^6/uL (4.70-6.10); Red Cell Distribution Width 16.7 % (11.0-15.0); White Blood Count 7.9 10^3/uL (4.0-11.0)
[2023-02-03 19:06] LABS: Hematocrit 23.7 % (42.0-54.0)
--- NOTE | 2023-02-03 19:09 | PC.NURSE ---
Critical lab trending in right direction.
[2023-02-03] MEDS: FERROUS SULFATE 325 MG TABLET PO (20:20)
[2023-02-03] MEDS: OMEPRAZOLE 40 MG CAPSULE.DR PO (20:20)
[2023-02-03] MEDS: ACETAMINOPHEN 500 MG TABLET PO (20:21)
[2023-02-03] MEDS: APIXABAN 5 MG TABLET PO (20:21)
[2023-02-04] VITALS (25 sets, daily range): BP systolic 115–173; BP diastolic 54–79; PULSE 77–106; RESP 18–22; TEMP 36.4–37.7; O2SAT 91–98
[2023-02-04] MEDS: IPRATROPIUM/ALBUTEROL SULFATE 3 ML AMPUL.NEB IH ×4 (04:27→20:20)
[2023-02-04 04:58] LABS: Eosinophils Percent Auto 0.2 % (0.9-7.0); Hemoglobin 7.6 g/dL (14.0-18.0); Immature Granulocytes Abs Auto 0.02 10^3/uL (0.00-0.03); Immature Granulocytes Pct Auto 0.4 % (0.0-0.5); Lymphocytes Absolute Auto 0.6 10^3/uL (1.2-3.8); Lymphocytes Percent Auto 10.7 % (20.5-60.0); Mean Corpuscular HGB Conc 31.8 g/dL (29.9-35.2); Mean Corpuscular Hemoglobin 27.2 pg (25.9-34.0); Mean Corpuscular Volume 85.7 fL (80.0-94.0); Mean Platelet Volume 10.8 fL (9.5-13.5); Monocytes Absolute Auto 0.9 10^3/uL (0.3-0.8); Neutrophils Absolute Auto 4.1 10^3/uL (1.4-6.5); Neutrophils Percent Auto 72.7 % (43.0-75.0); Platelet Count 217 10^3/uL (150-450); Red Blood Count 2.79 10^6/uL (4.70-6.10); Red Cell Distribution Width 16.7 % (11.0-15.0); White Blood Count 5.6 10^3/uL (4.0-11.0)
[2023-02-04] MEDS: GABAPENTIN 400 MG CAPSULE PO ×3 (05:04→21:04)
[2023-02-04 05:18] LABS: Hematocrit 23.9 % (42.0-54.0)
--- NOTE | 2023-02-04 05:20 | PC.NURSE ---
critical lab trending in right direction
[2023-02-04 05:30] LABS: Alanine Aminotransferase 9 U/L (16-63); Albumin Globulin Ratio 0.6; Albumin Level 2.7 g/dL (3.4-5.0); Alkaline Phosphatase 156 U/L (46-116); Anion Gap 13.9; Aspartate Amino Transferase 13 U/L (15-37); BUN Creatinine Ratio 8.3; Bilirubin Total 0.3 mg/dL (0.2-1.0); Calcium 8.5 mg/dL (8.5-10.1); Carbon Dioxide 22.1 mmol/L (21.0-32.0); Chloride 108 mmol/L (98-107); Estimated GFR (African America 57 (>=60); Estimated GFR (Non-African Ame 47 (>=60); Globulin 4.2 g/dL; Glucose 107 mg/dL (74-106); Sodium 140 mmol/L (136-145); Total Protein 6.9 g/dL (6.4-8.2)
[2023-02-04] MEDS: OMEPRAZOLE 40 MG CAPSULE.DR PO ×2 (09:57→20:50)
[2023-02-04] MEDS: FERROUS SULFATE 325 MG TABLET PO ×2 (09:57→20:49)
[2023-02-04] MEDS: APIXABAN 5 MG TABLET PO ×2 (09:57→20:50)
[2023-02-04] MEDS: SERTRALINE HCL 100 MG TABLET PO (09:57)
[2023-02-04] MEDS: MIDODRINE HCL 5 MG TABLET PO (09:57)
[2023-02-04] MEDS: SERTRALINE HCL 50 MG TABLET PO (09:57)
[2023-02-04] MEDS: 0.9 % SODIUM CHLORIDE 1,000 ML 75 ML IV (09:58)
[2023-02-04] MEDS: LIDOCAINE 5% PATCH 1 PATCH TOPICAL (09:58)
[2023-02-04] MEDS: BUDESONIDE 0.5 MG/2 ML AMPULE NEB IH ×2 (10:07→20:20)
--- NOTE | 2023-02-04 10:17 | REH.PTDLY ---
Physical Therapy Daily Note PT Daily Note/Assess Start: 02/04/23 10:14 Freq: Status: Active Protocol: Document 02/04/23 10:14 VAMSI (Rec: 02/04/23 10:17 VAMSI [id number]) Physical Therapy Daily Note/Assessment Time In 09:33 Time Out 09:42 Pain N/A Pain N/A Subjective Pt up in chair, agreeable to therapy. Therapeutic Exercise Minutes (minutes) 6 Therapeutic Exercise Units 1 Therapeutic Exercise Treatment Instructed in B LE seated exs 10x ea with AP, LAQ, marching, hip abd and hip add squeezes with verbal cues and demo to improve strength. Therapeutic Activity Minutes (minutes) 2 Therapeutic Activity Units 0 Chair Transfer Ability Minimum Assist Therapeutic Activity Comments Pt stands from chair with cues for hand placement Min A. Pt attempts to stand upright but complains of hip LB hurting too bad and sits back down. Call light at hand and chair alarm on. Total Therapy Minutes 8 Total Physical Therapy Units 1 Daily Note Summary Unable to progress to gait as pt is unable to stand more than 1 minute due to increased pain in LB and pt wanting to sit back down.
--- NOTE | 2023-02-04 10:49 | CM.NOTE ---
Rounds made with Dr. Morris, no discharge today. Pt will discharge back to [facility] for skilled therapy.
[2023-02-04 11:10] LABS: Percent Iron Saturation 14.4 %
--- NOTE | 2023-02-04 12:37 | PM.PN ---
Progress Note: Subjective Subjective Interval history: patient is a 82-year-old male who presented from [facility] with a hypoxic event that started after choking on some food. There was no Heimlich maneuver performed, and patient seemed to improve in the EMS and while in the Emergency Room. Patient was placed on BiPAP while in the Emergency Room and saturations improved. Patient has known chronic obstructive pulmonary disease, Parkinson's, chronic pulmonary emboli, hypertension, chronic iron deficiency anemia. Patient suffered a thoracic compression fracture last month and has been in a thoracic brace and has been doing rehab at [facility]. His is present at the time of admission exam. She also notes that it's been difficult for them to keep his blood pressure up and the addition of midodrine has been added the retirement. Patient is a DNR CCA and the order was placed on the chart today. At the time of admission exam the patient is saturating well on 3 L of nasal cannula. He appears comfortable and in no acute distress. He denies any current issues or complaints such as fever or chest pain or shortness of breath. more productive cough today, tolerated his 1 unit of PRBC's yesterday. Patient also moved to [facility] Exam Narrative Exam Narrative: General: Patient is alert, and oriented to person, place and time with normal affect, proper hygiene Skin: no visible rashes, or ulcers Head: atraumatic, acephalic Eyes: PERRLA, no nystagmus present, conjunctiva clear, no scleral icterus Ears: normal Tympanic Membrane, diminished gross auditory acuity Nose: symmetric, no discharge, no maxillary or frontal sinus tenderness Neck: no masses palpated, normal thyroid, no JVD or audible carotid bruits Heart: Normal rate and rhythm, no murmurs/rubs/gallops Lungs: no audible wheezes, crackles and normal breath sounds all lung cabezas Abdomen: Normal audible bowel sounds, no distension, No palpable masses, no organomegaly, no rebound/guarding/ or rigidity Musculoskeletal: no swelling bilateral lower extremities Lymph: no supraclavicular, axillary, or anterior/posterior cervical adenopathy Neuro: CN II-X grossly intact Constitutional Vital Signs - 24 hr 02/03/23 13:10 02/03/23 14:05 02/03/23 14:00 Temperature 98.5 F Pulse Rate 96 H 94 H 93 H Respiratory Rate 18 Blood Pressure Blood Pressure [Right Arm] 117/55 L Pulse Oximetry 96 Oxygen Delivery Method Room Air Oxygen Delivery Flow Rate 4 02/03/23 14:36 02/03/23 14:53 02/03/23 15:52 Temperature 98.5 F 98.8 F Pulse Rate 93 H 84 83 Respiratory Rate 18 18 Blood Pressure 117/55 L 118/56 L Blood Pressure [Right Arm] Pulse Oximetry 96 Oxygen Delivery Method Nasal Cannula Oxygen Delivery Flow Rate 4 02/03/23 15:53 02/03/23 16:43 02/03/23 18:23 Temperature 98.7 F Pulse Rate 85 90 Respiratory Rate 18 Blood Pressure 139/59 H Blood Pressure [Right Arm] Pulse Oximetry 96 Oxygen Delivery Method Nasal Cannula Oxygen Delivery Flow Rate 4 02/03/23 17:45 02/03/23 19:33 02/03/23 19:35 Temperature 99.8 F H 98.6 F Pulse Rate 87 81 78 Respiratory Rate 18 20 Blood Pressure 154/65 H Blood Pressure [Right Arm] 148/65 H Pulse Oximetry 98 Oxygen Delivery Method Nasal Cannula Oxygen Delivery Flow Rate 4 02/03/23 20:23 02/03/23 20:02 02/03/23 20:02 Temperature Pulse Rate 95 H 80 Respiratory Rate 18 16 Blood Pressure Blood Pressure [Right Arm] Pulse Oximetry 96 97 97 Oxygen Delivery Method Nasal Cannula Nasal Cannula Nasal Cannula Oxygen Delivery Flow Rate 4 4 4 02/03/23 21:39 02/03/23 23:28 02/04/23 01:22 Temperature Pulse Rate 94 H 85 82 Respiratory Rate Blood Pressure Blood Pressure [Right Arm] Pulse Oximetry Oxygen Delivery Method Oxygen Delivery Flow Rate 02/04/23 03:22 02/04/23 04:27 02/04/23 04:39 Temperature Pulse Rate 80 77 88 Respiratory Rate 18 22 Blood Pressure Blood Pressure [Right Arm] Pulse Oximetry 95 98 Oxygen Delivery Method Nasal Cannula Nasal Cannula Oxygen Delivery Flow Rate 4 4 02/04/23 05:48 02/04/23 06:00 02/04/23 07:58 Temperature 97.6 F Pulse Rate 99 H 98 H 89 Respiratory Rate 18 Blood Pressure Blood Pressure [Right Arm] 116/54 L Pulse Oximetry 93 L Oxygen Delivery Method Nasal Cannula Oxygen Delivery Flow Rate 4 02/04/23 10:05 02/04/23 10:19 02/04/23 11:50 Temperature Pulse Rate 83 87 Respiratory Rate Blood Pressure Blood Pressure [Right Arm] Pulse Oximetry Oxygen Delivery Method Nasal Cannula Oxygen Delivery Flow Rate 4 Progress Note: Objective Labs Labs: Short CBC 02/03/23 02/04/23 Range/Units 18:50 04:20 WBC 7.9 5.6 (4.0-11.0) 10^3/uL Hgb 7.7 L 7.6 L (14.0-18.0) g/dL Hct 23.7 L* 23.9 L* (42.0-54.0) % Plt Count 224 217 (150-450) 10^3/uL BMP 02/04/23 04:20 Sodium 140 Potassium 4.0 Chloride 108 H Carbon Dioxide 22.1 BUN 12.0 Creatinine 1.44 H Glucose 107 H Calcium 8.5 Liver Function 02/04/23 Range/Units 04:20 Total Bilirubin 0.3 (0.2-1.0) mg/dL AST 13 L (15-37) U/L ALT 9 L (16-63) U/L Alkaline Phosphatase 156 H (46-116) U/L Albumin 2.7 L (3.4-5.0) g/dL Progress Note: A&P Assessment and Plan (1) Aspiration pneumonia: Assessment and Plan: repeat x-rayafter having a CTA of the chest last night does show worsening pneumonia and given history of choking/aspiration will place on azithromycin and Rocephin. DuoNeb's, Pap therapy, monitor and titrate oxygen as needed with BiPAP on standby if needed, respiratory following for neb treatment (2) Acute and chronic respiratory failure ([id number]): Assessment and Plan: oxygen saturations did improve with BiPAP and is now saturating well on 2-3 L nasal cannula acute hypoxic event most likely secondary to aspiration could also be acute exacerbation of chronic obstructive pulmonary disease (3) Anemia in chronic illness: Assessment and Plan: initial hemoglobin was 8.6 and came down to 7.2 given shortness of breath most likely could be symptomatic. Will type and cross and transfuse patient one units of PRBCs patient is on oral iron therapy at home, patient and say that he has had a transfusion before understands the risks and benefits and did not have any prior issues. Recheck H and H and one hour after transfusion did not show much improvement, 2 more units today. check stool hemoccult (4) Parkinson disease: Assessment and Plan: continue carbidopa levodopa (5) Hypotension: Assessment and Plan: continue midodrine (6) GERD (gastroesophageal reflux disease): Assessment and Plan: omeprazole 40 mg by mouth twice a day (7) Depression: Assessment and Plan: continue Zoloft (8) Thoracic compression fracture: Assessment and Plan: thoracic brace in place PT OT consult (9) Chronic pulmonary embolism: Assessment and Plan: as seen on CTA only chronic findings we will continue eliquis (10) COPD (chronic obstructive pulmonary disease): Assessment and Plan: viral cultures negative; on 2L NC oxygen at home Plan patient is a DNR CCA continue eliquis for deep vein thrombosis prophylaxis patient is admitted under inpatient status and is expected to stay more than 2 midnights
[2023-02-04 13:10] LABS: Procalcitonin 0.15 ng/mL (0.00-0.08)
[2023-02-04] MEDS: AZITHROMYCIN 500 MG in 0.9 % SODIUM CHLORIDE 250 ML 250 MG IV (14:22)
[2023-02-04] MEDS: CEFTRIAXONE 1,000 MG in 0.9 % SODIUM CHLORIDE 50 ML 100 MG IV (15:36)
[2023-02-04] MEDS: ACETAMINOPHEN 500 MG TABLET PO (20:50)
[2023-02-05] VITALS (7 sets, daily range): BP systolic 142–149; BP diastolic 65–73; PULSE 80–104; RESP 18–118; TEMP 36.7; O2SAT 94–96
[2023-02-05] MEDS: 0.9 % SODIUM CHLORIDE 1,000 ML 75 ML IV (00:19)
[2023-02-05] MEDS: IPRATROPIUM/ALBUTEROL SULFATE 3 ML AMPUL.NEB IH ×2 (04:35→10:21)
[2023-02-05 04:58] LABS: Basophils Percent Auto 0.2 % (0.2-2.0); Eosinophils Percent Auto 0.3 % (0.9-7.0); Hematocrit 30.4 % (42.0-54.0); Hemoglobin 9.6 g/dL (14.0-18.0); Immature Granulocytes Abs Auto 0.03 10^3/uL (0.00-0.03); Immature Granulocytes Pct Auto 0.5 % (0.0-0.5); Lymphocytes Absolute Auto 0.5 10^3/uL (1.2-3.8); Lymphocytes Percent Auto 7.8 % (20.5-60.0); Mean Corpuscular HGB Conc 31.6 g/dL (29.9-35.2); Mean Corpuscular Hemoglobin 28.4 pg (25.9-34.0); Mean Corpuscular Volume 89.9 fL (80.0-94.0); Mean Platelet Volume 11.2 fL (9.5-13.5); Monocytes Absolute Auto 1.1 10^3/uL (0.3-0.8); Monocytes Percent Auto 18.9 % (1.7-12.0); Neutrophils Absolute Auto 4.3 10^3/uL (1.4-6.5); Neutrophils Percent Auto 72.3 % (43.0-75.0); Platelet Count 245 10^3/uL (150-450); Red Blood Count 3.38 10^6/uL (4.70-6.10); Red Cell Distribution Width 16.2 % (11.0-15.0)
[2023-02-05] MEDS: GABAPENTIN 400 MG CAPSULE PO ×2 (05:05→13:47)
[2023-02-05 05:27] LABS: Alanine Aminotransferase <6 U/L (16-63); Albumin Globulin Ratio 0.6; Albumin Level 2.6 g/dL (3.4-5.0); Alkaline Phosphatase 168 U/L (46-116); Aspartate Amino Transferase 17 U/L (15-37); BUN Creatinine Ratio 7.3; Bilirubin Total 0.7 mg/dL (0.2-1.0); Calcium 8.7 mg/dL (8.5-10.1); Carbon Dioxide 20.1 mmol/L (21.0-32.0); Chloride 109 mmol/L (98-107); Estimated GFR (African America >60 (>=60); Estimated GFR (Non-African Ame >60 (>=60); Globulin 4.5 g/dL; Glucose 105 mg/dL (74-106); Potassium 4.1 mmol/L (3.5-5.1); Sodium 138 mmol/L (136-145); Total Protein 7.1 g/dL (6.4-8.2)
--- NOTE | 2023-02-05 08:48 | XR_ITS ---
[address] [address] Patient Name: TRISTAN FRANKLIN MRN: [id number] date: 1940 Sex: M Assigned Patient Location: Current Patient Location: Accession/Order Number: [id number] Exam Date: 02/05/2023 09:02 Report Date: 02/05/2023 09:15 At the request of: CHESTER GUTIERREZ Procedure: XR chest 1V EXAM: Portable chest REASON FOR EXAM: Pneumonia. TECHNIQUE: A portable frontal view of the chest was obtained. COMPARISON: 02/03/2023. FINDINGS: The lungs are well-inflated and show faint haziness in both lung bases. The heart and mediastinum are stable in appearance. There is no mass or pathologic adenopathy. Osseous structures are normal. IMPRESSION: The appearance of the lung bases is indeterminate but could indicate an early bilateral pneumonia. If clinical concern remains, consider further evaluation with CT of the chest. Electronically authenticated by: AGUSTO DEMPSEY Date: 02/05/2023 09:15
[2023-02-05] MEDS: APIXABAN 5 MG TABLET PO (09:56)
[2023-02-05] MEDS: OMEPRAZOLE 40 MG CAPSULE.DR PO (09:56)
[2023-02-05] MEDS: FERROUS SULFATE 325 MG TABLET PO (09:56)
[2023-02-05] MEDS: SERTRALINE HCL 100 MG TABLET PO (09:57)
[2023-02-05] MEDS: MIDODRINE HCL 5 MG TABLET PO (09:57)
[2023-02-05] MEDS: SERTRALINE HCL 50 MG TABLET PO (09:57)
[2023-02-05] MEDS: LIDOCAINE 5% PATCH 1 PATCH TOPICAL (10:06)
[2023-02-05] MEDS: BUDESONIDE 0.5 MG/2 ML AMPULE NEB IH (10:21)
[2023-02-05] MEDS: AZITHROMYCIN 500 MG in 0.9 % SODIUM CHLORIDE 250 ML 250 MG IV (10:37)
--- NOTE | 2023-02-05 10:49 | SWNOTE1 ---
SW received message that pt's would like to talk with hospice. SW went in to pt's room to talk to pt and about hospice. After the conversation started, pt became upset from hearing the word hospice and spoke about a family member being on hospice for awhile and they starved them. Pt's then also became upset and asked the conversation to stop and that she did not want to talk about it anymore. Pt's went out in hallway with SW and the doctor and mental health case manager then talked with her as well. At this point and pt are undecided about discharge plans and are going to discuss options. SW to follow as needed.
--- NOTE | 2023-02-05 11:40 | CM.NOTE ---
1000- Rounds made with Dr. Morris, discussed discharge with pt and regarding different options. Talked about going back to [facility], home with HH, or Hospice care. verbalizes wanting to speak with Hospice. Asked if there was a preference of a company they would like to go with or we could bring in a list. requests a list.
--- NOTE | 2023-02-05 11:42 | CM.NOTE ---
After discussion with in hallway, went back into room to talk to both pt and . Listened to each of their concerns and answered questions. 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 After leaves, pt talks about how he just wants to go home and be with his family. He does not want to go back to [facility]. He fears Hospice d/t bad experience with his [id number]. He likes the HH agency he has had prior. After talking, pt is very appreciative and seems more calm. Pt asks if I could come back in when his gets back. Nurse will call when family arrive and will go back to have discharge conversation with family and pt.
--- NOTE | 2023-02-05 12:16 | PT.DAILY ---
Physical Therapy Daily Note PT Daily Note/Assess Start: 02/04/23 10:14 Freq: Status: Active Protocol: Document 02/05/23 11:11 KERRY (Rec: 02/05/23 12:16 KERRY [id number]) Physical Therapy Daily Note/Assessment Time In/Time Out Time In 11:00 Time Out 11:13 Pain In Pain N/A Pain Out Pain N/A Subjective Subjective Pt supine upon arrival talking with piano case maker. Agrees to get into chair. Therapeutic Exercise Time Therapeutic Exercise Minutes (minutes) 3 Therapeutic Exercise Units 0 Therapeutic Exercise Treatment Therapeutic Exercise Treatment Seated AP, LAQ, marches and add squeezes 10x to improve strength - once sitting in BS chair. Therapeutic Activity Time Therapeutic Activity Minutes (minutes) 9 Therapeutic Activity Units 1 Therapeutic Activity Treatment Bed Mobility Ability Moderate Assist Chair Transfer Ability Moderate Assist,2 Person Assist Therapeutic Activity Comments Pt supine>sit ModA to advance upper body to EOB. Sit>stand Germaine+2. Amb with RW Germaine+2 5' to BS chair. Remains in BS chair with chair alarm set and needs met. Total Physical Therapy Time Total Therapy Minutes 12 Total Physical Therapy Units 1 Summary Daily Note Summary Needs motivation to participate with PT. Increased assistance for transfers.
--- NOTE | 2023-02-05 14:01 | PM.DS1 ---
DS: Providers Provider Date of admission: 02/03/23 14:10 Primary care physician: ARDHIKA JOLLEY Admitting clinician: Zeb Jose Rios Consults: 02/03/23 02:02 Consult to [employer] Routine Speech Therapy Eval and Treat Routine 02/03/23 09:35 Occupational Therapy Eval and Treat Routine Physical Therapy Eval and Treat Routine Attending physician on discharge: Tonya Morris DS: Diagnosis Discharge Diagnosis (1) Aspiration pneumonia: Assessment and plan: worsening pneumonia and given history of choking/aspiration will place on azithromycin and Rocephin. DuoNeb's, Pep therapy, monitor and titrate oxygen as needed with BiPAP on standby if needed, respiratory following for neb treatment. Has been saturating well on home 3L of [place] oxygen, continue this at the care center (2) Acute and chronic respiratory failure ([id number]): Assessment and plan: oxygen saturations did improve with BiPAP and is now saturating well on 2-3 L nasal cannula acute hypoxic event most likely secondary to aspiration could also be acute exacerbation of chronic obstructive pulmonary disease (3) Anemia in chronic illness: Assessment and plan: initial hemoglobin was 8.6 and came down to 7.2 then only 7.6 after 1 unit, given shortness of breath most likely could be symptomatic. transfused patient 3 units PRBCs total and HB up to 9.6. patient is on oral iron therapy at home, patient and say that he has had a transfusion before understands the risks and benefits and did not have any prior issues. stool hemoccult negative. resume daily iron, recheck cbc in 5 days at care home recommended (4) Parkinson disease: Assessment and plan: continue carbidopa levodopa (5) Hypotension: Assessment and plan: continue midodrine (6) GERD (gastroesophageal reflux disease): Assessment and plan: omeprazole 40 mg by mouth twice a day (7) Depression: Assessment and plan: continue Zoloft (8) Thoracic compression fracture: Assessment and plan: thoracic brace in place PT OT (9) Chronic pulmonary embolism: Assessment and plan: as seen on CTA only chronic findings we will continue eliquis and oxygen (10) COPD (chronic obstructive pulmonary disease): Assessment and plan: viral cultures negative; on [place] oxygen at home Plan patient is a DNR [facility] continue eliquis for deep vein thrombosis prophylaxis patient is admitted under inpatient status and is expected to stay more than 2 midnights DS: Summary Hospital Course Hospital Course: Long discussions with patient, and , and now daughter along with case management/planning team. I gave them the option of home hospice consult as patient was pretty adment about going home. I told him medically he is too sick to go home and he is a fall risk and worse injury to himself if he does fall and his is also not equip to care for him at home. Home health could not start until the earliest wednesday and even then they would want him to have some more inpatient rehab. Patient refused hospice consult but did agree to going back to [facility] with much reluctance and did become very upset with /daughter and staff and stated they just want to lock me up . In the end he decided [facility] was better than staying here at the hospital. We discussed hopefully he will go home soon [facility]. He will go back to skilled today. Status at Discharge Functional status at discharge: wheelchair bound Overall status at discharge: patient is progressing back to baseline Time Spent with Patient Time attestation: Total time spent providing and/or coordinating discharge services: Time spent: greater than 30 minutes Exam Narrative Exam Narrative: General: Patient is alert, and oriented to person, place and time with normal affect, proper hygiene Skin: no visible rashes, or ulcers Head: atraumatic, acephalic Eyes: PERRLA, no nystagmus present, conjunctiva clear, no scleral icterus Ears: normal Tympanic Membrane, diminished gross auditory acuity Nose: symmetric, no discharge, no maxillary or frontal sinus tenderness Neck: no masses palpated, normal thyroid, no JVD or audible carotid bruits Heart: Normal rate and rhythm, no murmurs/rubs/gallops Lungs: no audible wheezes, crackles and diminished breath sounds all lung cabezas Abdomen: Normal audible bowel sounds, no distension, No palpable masses, no organomegaly, no rebound/guarding/ or rigidity Musculoskeletal: no swelling bilateral lower extremities, muscle atrophy Lymph: no supraclavicular, axillary, or anterior/posterior cervical adenopathy Neuro: CN II-X grossly intact, resting tremors Constitutional Vital Signs - 24 hr 02/04/23 14:19 02/04/23 16:27 02/04/23 19:39 Temperature 99.2 F Pulse Rate 79 95 H 79 Respiratory Rate 20 Blood Pressure 153/65 H Blood Pressure [Left Arm] Pulse Oximetry 94 L Oxygen Delivery Method Nasal Cannula Oxygen Delivery Flow Rate 4 02/04/23 19:47 02/04/23 20:00 02/04/23 20:20 Temperature 98.8 F Pulse Rate 86 81 80 Respiratory Rate 20 18 Blood Pressure 115/70 Blood Pressure [Left Arm] Pulse Oximetry 95 93 L Oxygen Delivery Method Nasal Cannula Nasal Cannula Oxygen Delivery Flow Rate 4 3 02/04/23 20:20 02/04/23 20:36 02/04/23 20:51 Temperature 99.4 F Pulse Rate 93 H 101 H Respiratory Rate 20 20 Blood Pressure 160/60 H Blood Pressure [Left Arm] Pulse Oximetry 93 L 95 91 L Oxygen Delivery Method Nasal Cannula Nasal Cannula Nasal Cannula Oxygen Delivery Flow Rate 3 3 3 02/04/23 21:20 02/04/23 21:44 02/04/23 21:00 Temperature 98.8 F 98.8 F Pulse Rate 106 H 101 H 100 H Respiratory Rate 18 20 Blood Pressure 136/68 H Blood Pressure [Left Arm] 141/59 H Pulse Oximetry 92 L Oxygen Delivery Method Nasal Cannula Nasal Cannula Oxygen Delivery Flow Rate 3 3 02/04/23 22:05 02/04/23 22:20 02/04/23 22:21 Temperature 98.8 F 100 F H 98.8 F Pulse Rate 98 H 96 H 90 Respiratory Rate 18 18 Blood Pressure 136/68 H 151/71 H 173/79 H Blood Pressure [Left Arm] Pulse Oximetry 92 L 94 L 96 Oxygen Delivery Method Nasal Cannula Nasal Cannula Nasal Cannula Oxygen Delivery Flow Rate 3 3 3 02/04/23 23:46 02/05/23 02:46 02/05/23 04:35 Temperature Pulse Rate 85 81 84 Respiratory Rate Blood Pressure Blood Pressure [Left Arm] Pulse Oximetry Oxygen Delivery Method Oxygen Delivery Flow Rate 02/05/23 04:48 02/05/23 04:35 02/05/23 05:59 Temperature Pulse Rate 90 81 104 H Respiratory Rate 20 18 Blood Pressure Blood Pressure [Left Arm] Pulse Oximetry 95 96 Oxygen Delivery Method Nasal Cannula Nasal Cannula Oxygen Delivery Flow Rate 3 2 02/05/23 06:00 02/05/23 08:27 02/05/23 13:48 Temperature 98.1 F Pulse Rate 96 H 80 86 Respiratory Rate 118 H 20 Blood Pressure Blood Pressure [Left Arm] 142/65 H 149/73 H Pulse Oximetry 94 L Oxygen Delivery Method Nasal Cannula Oxygen Delivery Flow Rate 3 DS: Data Data Completed and Pending Labs on day of discharge: Labs from last 24 hours 02/05/23 02/03/23 04:22 09:41 WBC 6.0 RBC 3.38 L Hgb 9.6 L Hct 30.4 L MCV 89.9 MCH 28.4 MCHC 31.6 RDW 16.2 H Plt Count 245 MPV 11.2 Neut % (Auto) 72.3 Lymph % (Auto) 7.8 L Dougherty % (Auto) 18.9 H Eos % (Auto) 0.3 L Baso % (Auto) 0.2 Neut # (Auto) 4.3 Lymph # (Auto) 0.5 L Dougherty # (Auto) 1.1 H Eos # (Auto) 0.0 Baso # (Auto) 0.0 Abs Immat Gran (auto) 0.03 Imm/Tot Granulo (auto) 0.5 Sodium 138 Potassium 4.1 Chloride 109 H Carbon Dioxide 20.1 L Anion Gap 13.0 BUN 8.0 Creatinine 1.09 Est GFR ( Amer) >60 Est GFR (Non-Af Amer) >60 BUN/Creatinine Ratio 7.3 Glucose 105 Calcium 8.7 Total Bilirubin 0.7 AST 17 ALT <6 L Alkaline Phosphatase 168 H Total Protein 7.1 Albumin 2.6 L Globulin 4.5 Albumin/Globulin Ratio 0.6 Blood Type A Negative Antibody Screen Negative Crossmatch See Detail Discharge Plan Discharge Disposition: Xfer SNF Discharge Medications: New azithromycin [Zithromax] 250 mg tablet 250 mg PO DAILY 4 Days Qty: 4 0RF amoxicillin-pot clavulanate 500-125 mg tablet 1 tab PO BID 7 Days Qty: 14 0RF Continued acetaminophen 500 mg capsule 500 mg PO Q6H PRN (Reason: fever or pain) apixaban 5 mg tablet 5 mg PO BID carbidopa-levodopa 25-100 mg tablet extended release 1 tab PO TID Patient Comments: Take 1.5 tablets by mouth before meals cyanocobalamin (vitamin B-12) 1,000 mcg capsule 1,000 mcg PO DAILY ferrous sulfate [Feosol] 325 mg (65 mg iron) tablet 325 mg PO BID gabapentin 400 mg capsule 400 mg PO TID lidocaine external patch 4% 4 % 4 % topical DAILY midodrine 5 mg tablet 5 mg PO TID Rx Instructions: do not give last dose of day after 6PM or within 4 hrs of bedtime pantoprazole 40 mg tablet,delayed release (DR/EC) 40 mg PO BID sertraline [Zoloft] 100 mg tablet 100 mg PO DAILY sertraline 50 mg tablet 50 mg PO DAILY Patient Comments: at HS PolyethleneGlycol-Propylene Gycol Ophthammic 0.3 % 0.3 % topical Rx Instructions: 6 x's daily for dry eyes erythromycin 5 mg/gram (0.5 %) ointment OPHTHALMIC (EYE) Discontinued Bactrim DS 500 mg tablet 500 mg PO BID Rx Instructions: x 10 days started on 01/27 Activity Restrictions/Additional Instructions: mechanical soft diet, no straws, wear 3L continuous nasal cannula oxygen Forms: Portal Instructions Follow Up Appointments: Transfer via ambulance to [facility] for rehab; will need CBC drawn by [facility] doc next week
--- NOTE | 2023-02-05 14:20 | SWNOTE1 ---
SW, pillowcase cleaner, dcotor, pt's , and pt's daughter all discuss dc plan in room with patient. At this time the physician determined that the safest plan for discharge is to return to [facility] skilled. CARTER called and set up [facility] and they will be here at 3:25. CARTER notified nursing, [facility], and pt's family of time. CARTER sent over dc orders to [facility].
== END 2023-02-05 16:00 | DRG 177 ==
LOC: ER 21:53 → ICU 02-03 02:00 → MS 02-03 14:13 → ICU 02-08 09:11 → MS 02-08 09:11
PROVIDERS: Emergency Medicine Emergency Medical Services; Admitting Provider Internal Medicine; Emergency Provider Internal Medicine; PCP Family Medicine; Visit Provider Family Medicine
DX: J69.0 Pneumonitis due to inhalation of food and vomit (principal); J96.21 Acute and chronic respiratory failure with hypoxia; E87.20 Acidosis, unspecified; I27.82 Chronic pulmonary embolism; J44.1 Chronic obstructive pulmonary disease with (acute) exacerbation; G20 Parkinson's disease; I10 Essential (primary) hypertension; K21.9 Gastro-esophageal reflux disease without esophagitis; I95.9 Hypotension, unspecified; F32.A Depression, unspecified; M48.54XD Collapsed vertebra, not elsewhere classified, thoracic region, subsequent encounter for fracture with routine healing; Z66 Do not resuscitate; Z51.5 Encounter for palliative care; D50.0 Iron deficiency anemia secondary to blood loss (chronic); F03.90 Unspecified dementia, unspecified severity, without behavioral disturbance, psychotic disturbance, mood disturbance, and anxiety; G62.1 Alcoholic polyneuropathy; Z86.16 Personal history of COVID-19; Z91.81 History of falling; Z79.899 Other long term (current) drug therapy; Z79.01 Long term (current) use of anticoagulants
CPT/HCPCS: 0202U; 36415; 36430; 36600; 71045; 71275; 80053; 81003; 82728; 82805; 83540; 83550; 83605; 83880; 84145; 84484; 85007; 85025; 85378; 85610; 86850; 86900; 86901; 92610; 93005; 94640; 94660; 94667; 94668; 94761; 96361; 96365; 96366; 96367; 96368; 97110; 97162; 97165; 97530; 97535; 99285; J0456; P9016; Q3014; Q9966